=== PATIENT | female | born 1945 | race Caucasian/White ===

== ENCOUNTER 2016-08-13 09:21 | Inpatient (IN) ==
[2016-08-13] MEDS ORDERED: IOPAMIDOL 100 ML BOTTLE IV ONE (09:22)
--- NOTE | 2016-08-13 10:13 | Emergency Department Note ---
General Adult HPI - General Chief complaint: Cold/Flu Symptoms Stated complaint: Chills, sore throat, Chest congestion Time Seen by Provider: 08/13/16 09:53 Source: patient Mode of arrival: ambulatory Limitations: no limitations - History of Present Illness HPI Narrative: 70 year old female is complaining of sudden onset of chills, fever and cough since 08/10. She has had chills and sweats on and off during this time. What is concerning her most is the left anterior chest pain radiating into her left jaw and shoulder. It feels like pressure and squeezing. She is short of breath , has a cough, and is afraid her lung might be collapsed. She had this happen 30 years ago. Appetite is decreased. She is nauseated but is able to drink fluids. Aleve taken for the body aches which are better today. Last dose was last night. She is still diaphoretic and the chest pain continues. No hx of cardiac risks. Onset (ago): day(s) (3) Location: chest (left anterior) Radiation: neck Severity: moderate Quality: aching, constant Consistency: constant Improves with: none Worsens with: none Associated symptoms: Reports: diaphoresis, fever/chills, loss of appetite, nausea/vomiting (nausea), shortness of breath Treatments Prior to Arrival: none - Related Data Home Medications Medication Instructions Recorded Confirmed No Known Home Meds [No Known Home 08/13/16 08/13/16 Meds] Allergies Allergy/AdvReac Type Severity Reaction Status Date / Time Penicillin Allergy Mild Rash Uncoded 04/07/15 08:38 Review of Systems Constitutional: Reports: fever, chills ENT ED: Denies: throat pain, congestion Cardiovascular: Reports: chest pain, dyspnea on exertion. Denies: edema Respiratory: Reports: cough Gastrointestinal: Reports: nausea. Denies: diarrhea Musculoskeletal: Reports: myalgia (resolving) Integumentary: Denies: rash Neurological: Denies: headache Physical Exam - General Limitations: no limitations General appearance: alert, in no apparent distress - Head Head exam: normocephalic - Eye Eye exam: Present: normal appearance, PERRL, EOMI - ENT ENT exam: normal exam - Neck Neck exam: Present: normal inspection. Absent: tenderness, lymphadenopathy - Chest Chest inspection: Present: normal inspection, symmetric chest wall rise. Absent : tenderness - Respiratory Respiratory exam: Present: other (Moving air right lung kaufman, decreased on the left. O2 sat 93% on room air.) - Cardiovascular Cardiovascular exam: Present: tachycardia, normal heart sounds - Abdominal Exam Abdominal exam: Present: soft, distention (Patient feels she is bloated), normal bowel sounds. Absent: tenderness Abdominal tenderness: Present: mild (generalized) - Rectal Exam Rectal exam: Present: deferred - Extremities Exam Extremities exam: Present: normal inspection, normal capillary refill. Absent: pedal edema - Neurological Exam Neurological exam: Present: alert, oriented X3 - Psychiatric Psychiatric exam: Present: normal affect, normal mood - Skin Skin exam: Present: warm, intact, diaphoresis Course Vital Signs Temperature 98.7 F 08/13/16 09:22 Pulse Rate 115 H 08/13/16 09:22 Respiratory Rate 22 08/13/16 09:22 Blood Pressure 108/65 08/13/16 09:22 Pulse Oximetry (%) 95 08/13/16 09:22 Temperature 99.4 F H 08/13/16 12:24 Pulse Rate 102 H 08/13/16 12:18 Respiratory Rate 30 H 08/13/16 12:18 Blood Pressure 108/47 08/13/16 12:18 Pulse Oximetry (%) 93 08/13/16 12:18 Medical Decision Making - Lab Data Result diagrams: 08/13/16 10:27 08/13/16 10:27 Lab Results 08/13/16 08/13/16 08/13/16 Range/Units 10:27 10:27 10:27 WBC 17.1 H (4.5-11.0) K/mcL RBC 4.16 (4.00-5.20) M/mcL Hgb 13.0 (12.0-15.0) g/dL Hct 37.6 (36.0-48.0) % MCV 90.3 (80.0-100.0) fL MCH 31.2 (26.0-34.0) pg MCHC 34.5 (31.0-36.0) g/dL RDW 14.7 H (11.5-14.5) % Plt Count 152 (140-440) K/mcL MPV 10.1 (7.4-10.4) fL Gran % 91.2 H (38.0-78.0) % Lymph % (Auto) 4.4 L (15.5-49.0) % Lyman % (Auto) 4.3 (1.0-12.0) % Eos % (Auto) 0 (0.0-7.0) % Baso % (Auto) 0.1 (0.0-2.0) % Gran # 15.6 H (1.8-8.0) K/mcL Lymph # (Auto) 0.8 L (1.5-4.8) K/mcL Lyman # (Auto) 0.7 (0.1-0.9) K/mcL Eos # (Auto) 0 (0.0-0.7) K/mcL Baso # (Auto) 0 (0.0-0.3) K/mcL VBG Lactic Acid (0.5-2.2) mmol/L Sodium 131 L (133-145) mmol/L Potassium 3.4 (3.3-5.1) mmol/L Chloride 93 L (96-108) mmol/L Carbon Dioxide 22 (22-30) mmol/L Anion Gap 16.0 (8-16) BUN 23 (8-23) mg/dl Creatinine 0.8 (0.6-1.1) mg/dl GFR Calculation 76 Glucose 123 H (70-105) mg/dL Calcium 9.2 (8.6-10.4) mg/dl Total Bilirubin 0.9 (0.0-1.0) mg/dL AST 19 (0-37) U/l ALT 15 (0-40) U/l Alkaline Phosphatase 102 (39-117) U/L Total Creatine Kinase 58 (24-170) IU/L CK-MB (CK-2) 1.1 (0-2.9) ng/ml Myoglobin 55 (25-58) ng/ml Troponin T < 0.01 (0-0.03) ng/ml Total Protein 7.0 (5.9-8.4) gm/dL Albumin 3.5 (3.2-5.2) gm/dL Globulin 3.5 (2.2-3.7) gm/dL Albumin/Globulin Ratio 1.0 (1.0-2.3) Procalcitonin (<0.10) ng/mL Acetaminophen (10.0-30.0) mcg/ml 08/13/16 08/13/16 08/13/16 Range/Units 10:27 10:27 11:33 WBC (4.5-11.0) K/mcL RBC (4.00-5.20) M/mcL Hgb (12.0-15.0) g/dL Hct (36.0-48.0) % MCV (80.0-100.0) fL MCH (26.0-34.0) pg MCHC (31.0-36.0) g/dL RDW (11.5-14.5) % Plt Count (140-440) K/mcL MPV (7.4-10.4) fL Gran % (38.0-78.0) % Lymph % (Auto) (15.5-49.0) % Lyman % (Auto) (1.0-12.0) % Eos % (Auto) (0.0-7.0) % Baso % (Auto) (0.0-2.0) % Gran # (1.8-8.0) K/mcL Lymph # (Auto) (1.5-4.8) K/mcL Lyman # (Auto) (0.1-0.9) K/mcL Eos # (Auto) (0.0-0.7) K/mcL Baso # (Auto) (0.0-0.3) K/mcL VBG Lactic Acid 1.3 (0.5-2.2) mmol/L Sodium (133-145) mmol/L Potassium (3.3-5.1) mmol/L Chloride (96-108) mmol/L Carbon Dioxide (22-30) mmol/L Anion Gap (8-16) BUN (8-23) mg/dl Creatinine (0.6-1.1) mg/dl GFR Calculation Glucose (70-105) mg/dL Calcium (8.6-10.4) mg/dl Total Bilirubin (0.0-1.0) mg/dL AST (0-37) U/l ALT (0-40) U/l Alkaline Phosphatase (39-117) U/L Total Creatine Kinase (24-170) IU/L CK-MB (CK-2) (0-2.9) ng/ml Myoglobin (25-58) ng/ml Troponin T (0-0.03) ng/ml Total Protein (5.9-8.4) gm/dL Albumin (3.2-5.2) gm/dL Globulin (2.2-3.7) gm/dL Albumin/Globulin Ratio (1.0-2.3) Procalcitonin 4.97 (<0.10) ng/mL Acetaminophen < 5.0 L (10.0-30.0) mcg/ml Disposition Clinical Impression: Pneumonia Disposition: Xfer As Inpt ([facility]) Condition: Fair Referrals: Cl Bains MD [Primary Care Provider] -
[2016-08-13] MEDS ORDERED: ASPIRIN 81 MG TAB.CHEW CHEWED ONE (10:15)
[2016-08-13 11:12] LABS: Basophils # (Auto) 0 K/mcL (0.0-0.3); Basophils % (Auto) 0.1 % (0.0-2.0); Eosinophils # (Auto) 0 K/mcL (0.0-0.7); Eosinophils % (Auto) 0 % (0.0-7.0); Granulocytes % (Auto) 91.2 % (38.0-78.0); Lymphocytes # (Auto) 0.8 K/mcL (1.5-4.8); Lymphocytes % (Auto) 4.4 % (15.5-49.0); Mean Cell Volume 90.3 fL (80.0-100.0); Mean Corpuscular HGB Conc 34.5 g/dL (31.0-36.0); Mean Corpuscular Hemoglobin 31.2 pg (26.0-34.0); Monocytes # (Auto) 0.7 K/mcL (0.1-0.9); Monocytes % (Auto) 4.3 % (1.0-12.0); Platelet Count 152 K/mcL (140-440); RBC 4.16 M/mcL (4.00-5.20); Red Cell Distribution Width 14.7 % (11.5-14.5)
[2016-08-13] MEDS ORDERED: ACETAMINOPHEN 325 MG TABLET PO ONE (11:12)
[2016-08-13] MEDS ORDERED: 0.9 % SODIUM CHLORIDE 1,000 ML IV ONE ×2 (11:25→13:36)
[2016-08-13] MEDS ORDERED: LEVOFLOXACIN 500 MG/100 ML BAG IV SCH (11:30)
[2016-08-13] MEDS ORDERED: cefTRIAXone 1 GM in DEXTROSE 5% IN WATER 50 ML IV SCH (11:30)
[2016-08-13] MEDS ORDERED: IPRATROPIUM/ALBUTEROL 3 ML AMPUL.NEB NEB ONE (11:34)
[2016-08-13 11:38] LABS: Myoglobin 55 ng/ml (25-58)
[2016-08-13 11:39] LABS: Creatine Kinase MB 1.1 ng/ml (0-2.9)
--- NOTE | 2016-08-13 11:40 | XRay Report ---
CLINICAL INFORMATION: Chest pain FINDINGS: The heart is mildly enlarged. Mediastinum and pulmonary vasculature are unremarkable. An 8 cm mass versus masslike infiltrate is seen in the lateral left upper lobe. Minor bibasilar atelectasis noted. IMPRESSION: 8 cm mass versus masslike infiltrate versus loculated pleural effusion in the left upper lobe. Suggest two view upright chest x-ray as the next step in evaluation Interpreted and Authenticated by: Gregory Garza 08/13/16
[2016-08-13 11:43] LABS: ALT/SGPT 15 U/l (0-40); Albumin 3.5 gm/dL (3.2-5.2); Alkaline Phosphatase 102 U/L (39-117); Blood Urea Nitrogen 23 mg/dl (8-23); Creatine Kinase 58 IU/L (24-170)
--- NOTE | 2016-08-13 12:26 | Cat Scan Report ---
CLINICAL INFORMATION: Potential mass left upper lobe on plain film COMPARISON: Plain film from 08/13/2016 TECHNIQUE: 80 cc of Isovue-300 were injected intravenously, and 25 seconds later, 2.5 mm helical slices were obtained from the lung apices through the bases. Following reconstruction, 2.5 mm sagittal, coronal and axial reformations were processed and reviewed at lung, mediastinal and bone windows. 7 mm axial MIPS were also obtained FINDINGS: There is a large alveolar infiltrate throughout most of the left upper lobe with partial sparing of the anterior segment. It is likely a simple pneumonia. There is minimal underlying bronchitis appreciated. No effusion. Mediastinal windows show the heart to be normal in size configuration. Thoracic aorta and pulmonary arteries are unremarkable. A few mildly enlarged lymph nodes are seen in the left hilum, AP window and lower paratracheal region (benign reactive lymph nodes. Esophagus is grossly normal. Bones and soft tissues of the chest wall are normal. IMPRESSION: Large infiltrate, involving most of the left upper lobe, is likely a simple pneumonia. Interpreted and Authenticated by: Gregory Garza 08/13/16
--- NOTE | 2016-08-13 13:52 | Internal Med History&Physical ---
Medical - H&P: HPI Patient information: Note initiated : 08/13/16 at 1:49 pm Patient: Francine Way a 70 y/o F admitted on for Chills, sore throat, Chest congestion. History of present illness: Ms. Way is a 70 year old F This patient is a 70-year-old female who was in her normal state of health until about 4 days ago. On Monday, she said she developed the sudden onset of chills and diaphoresis, myalgias, and just generally felt very poorly. She thought she had some sort of viral infection, and put herself to bed. Since then she has developed cough productive of greenish phlegm. She has been experiencing pain in the left upper chest and into the shoulder for the last 2 days. Her breathing has been more labored for the last 2 days as well. She says she has had a very mild sore throat, and very poor appetite. She did not check her temperature. Otherwise, she denies headaches or dizziness, blurry vision, ear symptoms, dysphasia. She denies chest pain other than near the shoulder, palpitations, abdominal pain, nausea or vomiting, diarrhea or constipation, or dysuria. She has not noticed swollen lymph nodes. She presented to the emergency room, where she was found to have a temperature greater than 101, O2 saturations hovering around 92% on room air, systolic blood pressure in the 80s, markedly elevated white blood cell count and elevated pro-calcitonin level. Chest x-ray and then chest CT scan show dense left upper lobe pneumonia. Past medical history: History of pneumothorax 30 years ago ? Esophageal stricture-status post dilation. She no longer takes omeprazole. Dyslipidemia-vision is unsure about this. Medications: She takes some kind of hair vitamin. She takes another [id number] anti- inflammatory supplement, which sounds like it contains herbs. She takes fish oil 3 times a day. Allergies: Penicillin-many years ago. Social history: She denies use of tobacco or alcohol or drugs. She lives with her . 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 Of note, her has been sick with what sounds like a sinus infection and a little bit of a cough lately. She had 4 children, one is . The other 3 live out of town in [place], [place], etc. Between she and her they have raised about 10 children. Family history: Her mom with cervical cancer. Her grandmother lived to be 96. Her father of a heart attack followed by a stroke in his 80s. She has one brother who is alive and well. Medical - H&P: Meds Home Medications Medication Instructions Recorded Confirmed Type No Known Home Meds [No Known Home 08/13/16 08/13/16 History Meds] Allergies Allergy/AdvReac Type Severity Reaction Status Date / Time Penicillin Allergy Mild Rash Uncoded 04/07/15 08:38 Medical - H&P: Exam - Constitutional Vitals: Temp Pulse Resp BP Pulse Ox 99.4 F H 86 24 H 102/77 96 08/13/16 12:24 08/13/16 13:35 08/13/16 13:35 08/13/16 13:35 08/13/16 13:35 Initial temperature 101.7, heart rate 106, respiratory rate 25, blood pressure 117/75, O2 saturation 92% on room air. Blood pressure prior to transfer to the floor, was 89/50 per She is lying in bed, with no severe distress at the moment. She does have a very congested sounding cough. Head: Cephalic atraumatic. Eyes: PERRLA, EOMI, anicteric. Ears: TMs and canals are clear. Pharynx: Mucosa is a bit dry. Posterior pharynx is not well seen. There is crowding due to her tongue. Teeth are in good repair. Neck: Is supple, without lymphadenopathy, JVD, thyromegaly, bruits. Cardiac exam shows regular rate and rhythm, with normal S1 and S2, although heart sounds are fairly distant and overshadowed a bit by her lung sounds. Lungs: She has quite a bit of crackles and wheezing noted in the anterior left chest. There is some softer crackles noted in the left upper posterior lung kaufman. Remainder of the lungs are clear. Abdomen: Is soft and nontender, with no masses or tenderness. Bowel sounds are active. Extremities: Show no cyanosis, clubbing, edema. Neurologic exam is grossly nonfocal. Skin exam: Does not show any rashes or other worrisome lesions. Medical - H&P: Reslt - Labs CBC & Chem 7: 08/13/16 10:27 08/13/16 10:27 Labs: Short CBC 08/13/16 Range/Units 10:27 WBC 17.1 H (4.5-11.0) K/mcL Hgb 13.0 (12.0-15.0) g/dL Hct 37.6 (36.0-48.0) % Plt Count 152 (140-440) K/mcL BMP 08/13/16 10:27 Sodium 131 L Potassium 3.4 Chloride 93 L Carbon Dioxide 22 BUN 23 Creatinine 0.8 Glucose 123 H Calcium 9.2 Cardiac Enzymes 08/13/16 08/13/16 Range/Units 10:27 10:27 Total Creatine Kinase 58 (24-170) IU/L CK-MB (CK-2) 1.1 (0-2.9) ng/ml Troponin T < 0.01 (0-0.03) ng/ml Liver Function 08/13/16 Range/Units 10:27 Total Bilirubin 0.9 (0.0-1.0) mg/dL AST 19 (0-37) U/l ALT 15 (0-40) U/l Alkaline Phosphatase 102 (39-117) U/L Albumin 3.5 (3.2-5.2) gm/dL August 13: CBC differential shows 15,000 granulocytes, 800 lymphocytes. RDW is elevated at 14.7. Lactic acid is normal at 1.3 Pro-calcitonin is elevated at 4.97, consistent with possible sepsis. CT scan of the chest: Shows a large infiltrate, involving most of the left upper lobe, likely a simple pneumonia. Minimal underlying bronchitis. Mildly enlarged lymph nodes in the left hilum, likely benign reactive. Medical - H&P: A/P (1) Pneumonia involving left lung Current visit: Yes Status: Acute (2) CAP (community acquired pneumonia) Current visit: Yes Status: Acute (3) SIRS (systemic inflammatory response syndrome) Current visit: Yes Status: Acute (4) Hyperlipidemia Current visit: No Status: Chronic (5) History of esophageal stricture Current visit: No Status: Chronic - Narrative A/P Narrative: #1. Infectious disease. SIRS syndrome this patient presents with signs and symptoms of left upper lobe pneumonia, community-acquired. She presents with fever, borderline hypoxia, hypotension, elevated pro-calcitonin, consistent with possible early sepsis. -Admit to telemetry for close monitoring. -Treat with Rocephin for community-acquired pneumonia, plus clindamycin for possible aspiration. -Pulmonary toilet, oxygen, bronchodilators, incentive spirometry. -Aggressive IV fluid hydration. -Monitor labs. -Blood and sputum cultures are pending. -If blood pressure does not respond to fluids, add levophed for support. 2. CODE STATUS: Full code. She indicates she does not have a written living well, but thinks she would like her daughter to have her power of business attorney. She would not want long-term life support. 3. DVT prophylaxis: Subcu heparin. 4. GI: Reported history of esophageal stricture. -I will start her on a proton pump inhibitor for prophylaxis. 5. History of hyperlipidemia. -Patient denies history of this 6. Renal/endocrine. Patient presents with hyponatremia. This is likely related to her lung process. Continue to monitor. This visit took approximately 60 minutes, to review her case with the ER MD, review her records and test results, interview and examine her, explained plan of care to she and her , and write orders.
[2016-08-13] MEDS ORDERED: ALBUTEROL SULFATE 2.5 MG/3 ML NEBULIZER NEB PRN (14:22)
[2016-08-13] MEDS ORDERED: ACETAMINOPHEN 325 MG TABLET PO PRN (14:22)
[2016-08-13] MEDS ORDERED: ONDANSETRON 4 MG/2 ML VIAL IV PRN (14:22)
[2016-08-13] MEDS ORDERED: NALOXONE HCL 0.4 MG/ML VIAL IV PRN (14:22)
[2016-08-13] MEDS ORDERED: DOCUSATE SODIUM 100 MG CAPSULE PO PRN (14:22)
[2016-08-13] MEDS ORDERED: MAGNESIUM HYDROXIDE 30 ML ORAL.SUSP PO PRN (14:22)
[2016-08-13] MEDS: CLINDAMYCIN 300 MG in DEXTROSE 5% IN WATER 50 ML IV SCH ×3 (15:00→23:32)
[2016-08-13] MEDS: POTASSIUM CHLORIDE 20 MEQ in 0.45 % SODIUM CHLORIDE 1,000 ML IV SCH ×2 (15:00→22:23)
[2016-08-13] MEDS: ALBUTEROL SULFATE 2.5 MG/3 ML NEBULIZER NEB SCH (19:31)
[2016-08-13] MEDS: HYDROcodone/APAP 5/325MG TABLET PO PRN ×2 (20:44→23:27)
[2016-08-14] MEDS: ALBUTEROL SULFATE 2.5 MG/3 ML NEBULIZER NEB SCH ×4 (01:52→19:44)
[2016-08-14] MEDS: POTASSIUM CHLORIDE 20 MEQ in 0.45 % SODIUM CHLORIDE 1,000 ML IV SCH ×2 (05:03→09:39)
[2016-08-14] MEDS: CLINDAMYCIN 300 MG in DEXTROSE 5% IN WATER 50 ML IV SCH ×3 (05:31→17:52)
[2016-08-14 05:36] LABS: Basophils # (Auto) 0 K/mcL (0.0-0.3); Basophils % (Auto) 0 % (0.0-2.0); Eosinophils # (Auto) 0.1 K/mcL (0.0-0.7); Eosinophils % (Auto) 0.5 % (0.0-7.0); Granulocytes % (Auto) 83.6 % (38.0-78.0); Lymphocytes % (Auto) 8.7 % (15.5-49.0); Mean Corpuscular HGB Conc 33.5 g/dL (31.0-36.0); Mean Corpuscular Hemoglobin 30.8 pg (26.0-34.0); Monocytes # (Auto) 0.8 K/mcL (0.1-0.9); Monocytes % (Auto) 7.2 % (1.0-12.0); Platelet Count 144 K/mcL (140-440); RBC 3.57 M/mcL (4.00-5.20); Red Cell Distribution Width 14.9 % (11.5-14.5)
[2016-08-14 05:52] LABS: ALT/SGPT 15 U/l (0-40); Albumin 2.7 gm/dL (3.2-5.2); Albumin/Globulin Ratio 0.9 (1.0-2.3); Alkaline Phosphatase 97 U/L (39-117); Bilirubin,Direct < 0.2 mg/dL (0.0-0.3); Blood Urea Nitrogen 16 mg/dl (8-23); Gamma Glutamyl Transpeptidase 24 U/L (5-36); Magnesium 2.2 mg/dL (1.6-2.5); Uric Acid 4.3 mg/dL (2.5-8.0)
[2016-08-14] MEDS: PANTOPRAZOLE 40 MG TABLET PO SCH (07:11)
--- NOTE | 2016-08-14 08:23 | XRay Report ---
CLINICAL INFORMATION: Follow pneumonia COMPARISON: 08/13/2016 FINDINGS: The heart is mildly enlarged, but unchanged. Mediastinum and pulmonary vessels are normal. Densely consolidated infiltrate in the left upper lobe is slightly larger. Small vague infiltrate is developing in the left lower lobe IMPRESSION: Moderate sized of the consolidated left upper lobe infiltrate likely pneumonia is slightly increased. Small infiltrate involving the left lower lobe Interpreted and Authenticated by: Gregory Garza 08/14/16
[2016-08-14] MEDS ORDERED: PNEUMOCOCCAL 23-VAL P-SAC VAC 0.5 ML VIAL IM ONE (09:00)
[2016-08-14] MEDS: ENOXAPARIN 40 MG/0.4 ML SYRINGE SQ SCH (09:32)
[2016-08-14] MEDS: cefTRIAXone 1 GM in DEXTROSE 5% IN WATER 50 ML IV SCH (09:38)
--- NOTE | 2016-08-14 11:05 | Internal Med Progress Note ---
Medical - PN: Subj Patient information: Note initiated : 08/14/16 at 11:04 am Patient: Francine Way a 70 y/o F admitted on 08/13/16 for Chills, sore throat, Chest congestion. Interval history: August 13, 2016: History of present illness: Ms. Way is a 70 year old F This patient is a 70-year-old female who was in her normal state of health until about 4 days ago. On Monday, she said she developed the sudden onset of chills and diaphoresis, myalgias, and just generally felt very poorly. She thought she had some sort of viral infection, and put herself to bed. Since then she has developed cough productive of greenish phlegm. She has been experiencing pain in the left upper chest and into the shoulder for the last 2 days. Her breathing has been more labored for the last 2 days as well. She says she has had a very mild sore throat, and very poor appetite. She did not check her temperature. Otherwise, she denies headaches or dizziness, blurry vision, ear symptoms, dysphasia. She denies chest pain other than near the shoulder, palpitations, abdominal pain, nausea or vomiting, diarrhea or constipation, or dysuria. She has not noticed swollen lymph nodes. She presented to the emergency room, where she was found to have a temperature greater than 101, O2 saturations hovering around 92% on room air, systolic blood pressure in the 80s, markedly elevated white blood cell count and elevated pro-calcitonin level. Chest x-ray and then chest CT scan show dense left upper lobe pneumonia. August 14: Today, the patient notes she is feeling quite a bit better. She continues to have a significant cough, productive of blood-streaked greenish phlegm. She continues to have significant pain in her left upper chest and shoulder area, but thinks her shortness of breath is improved. Her fever has been coming down overnight. She did get up to walk today, but was a little unsteady on her feet. Her appetite seems a little bit improved this morning. Otherwise she has been sweaty overnight, but did not actually feel feverish. She denies headaches or dizziness, sore throat, significant shortness of breath. She denies abdominal pain, nausea or vomiting, diarrhea, dysuria. - Constitutional Vitals: Vital Signs Temp Pulse Resp BP Pulse Ox 97.4 F 86 16 103/74 98 08/14/16 07:00 08/14/16 07:15 08/14/16 07:15 08/14/16 07:00 08/14/16 07:15 Period Temp Pulse Resp BP Sys/Britt Pulse Ox Last 24 Hr 97.4 F-98.2 F 60-87 16-20 94-111/59-74 93-98 Intake and Output 08/13/16 08/14/16 08/14/16 21:59 05:59 13:59 Intake Total 2414 / 2414 2142 / 2142 972 / 972 Output Total 700 / 700 1000 / 1000 20 / 20 Balance 1714 / 1714 1142 / 1142 952 / 952 Weight 214 lb Intake & Output: Intake & Output 08/13/16 08/14/16 08/14/16 21:59 05:59 13:59 Intake Total 2414 / 2414 2142 / 2142 972 / 972 Output Total 700 / 700 1000 / 1000 20 / 20 Balance 1714 / 1714 1142 / 1142 952 / 952 Weight 214 lb Intake: IV 2114 / 2114 1062 / 1062 792 / 792 Cleocin 300 mg In 104 / 104 52 / 52 52 / 52 Dextrose 5% in Water 50 ml @ 100 mls/hr IV Q6H [facility] Rx#:[id number] Potassium Chloride 20 Meq 1010 / 1010 1010 / 1010 In Sodium Chloride 0.45% 1,000 ml @ 150 mls/hr IV .[id number] [facility] Rx#: [id number] Oral 300 / 300 1080 / 1080 180 / 180 Output: Void Amount 700 / 700 1000 / 1000 20 / 20 Other: # Voids 1 1 Temperature is 98.3. Respiratory rate 24. Blood pressure 103/88. O2 saturation is 94% on room air. On exam, she still appears rather fatigued. However she is lying flat and in no distress. Neck is supple without obvious lymphadenopathy. She does have a heating pad over her left shoulder area. Cardiac exam: Shows regular rate and rhythm. Lungs: She has rather marked wheezes and rhonchi noted in the left upper chest both anteriorly and posteriorly. She does have a few crackles scattered throughout the left-sided lung kaufman. Breath sounds are mostly clear, and somewhat decreased in the remainder of the lung kaufman. Abdomen is soft and nontender with no obvious masses. Extremities show no edema. Neurologic exam is grossly nonfocal. Medical - PN: Obj Da - Labs CBC & Chem 7: 08/14/16 03:42 08/14/16 03:42 Labs: Abnormal Lab Results 08/14/16 08/14/16 03:42 03:42 WBC 11.6 H RBC 3.57 L Hgb 11.0 L Hct 32.9 L RDW 14.9 H Gran % 83.6 H Lymph % (Auto) 8.7 L Gran # 9.7 H Lymph # (Auto) 1.0 L Glucose 107 H Phosphorus 2.4 L Total Protein 5.7 L Albumin 2.7 L Albumin/Globulin Ratio 0.9 L August 14: Blood cultures are negative so far. Sputum culture is still pending. Chest x-ray: Left upper lobe infiltrate is slightly increased. There is also a small infiltrate involving the left lower lobe. August 13: CBC differential shows 15,000 granulocytes, 800 lymphocytes. RDW is elevated at 14.7. Lactic acid is normal at 1.3 Pro-calcitonin is elevated at 4.97, consistent with possible sepsis. CT scan of the chest: Shows a large infiltrate, involving most of the left upper lobe, likely a simple pneumonia. Minimal underlying bronchitis. Mildly enlarged lymph nodes in the left hilum, likely benign reactive. Meds: Medications Acetaminophen (Tylenol) 650 mg PO Q6HP PRN PRN Reason: PAIN/FEVER > 101 Hydrocodone Bitart/Acetaminophen ([place] 5/325mg) 1 tab PO Q4HP PRN PRN Reason: Pain Last Admin: 08/13/16 23:27 Dose: 1 tab Albuterol Sulfate (Ventolin) 2.5 mg NEB Q6HRT [facility] Last Admin: 08/14/16 07:12 Dose: 2.5 mg Albuterol Sulfate (Ventolin) 2.5 mg NEB Q2HP PRN PRN Reason: Shortness Of Breath Docusate Sodium (Colace) 100 mg PO BID PRN PRN Reason: Constipation Enoxaparin Sodium (Lovenox) 40 mg SQ DAILY [facility] Last Admin: 08/14/16 09:32 Dose: 40 mg Ceftriaxone Sodium 1 gm/ (Dextrose) 50 mls @ 100 mls/hr IV DAILY [facility] Last Admin: 08/14/16 09:38 Dose: 100 mls/hr Clindamycin Phosphate 300 mg/ (Dextrose) 52 mls @ 100 mls/hr IV Q6H [facility] Last Infusion: 08/14/16 06:32 Dose: Infused Potassium Chloride 20 meq/ (Sodium Chloride) 1,010 mls @ 80 mls/hr IV .[id number] [facility] Last Admin: 08/14/16 09:39 Dose: 80 mls/hr Magnesium Hydroxide (Milk Of Magnesia) 30 ml PO DAILYP PRN PRN Reason: Constipation Naloxone HCl (Narcan) 0.1 mg IV Q2MIN PRN PRN Reason: Opiate Reversal Ondansetron HCl (Zofran) 4 mg IV Q4HP PRN PRN Reason: Nausea And Vomiting Pantoprazole Sodium (Protonix) 40 mg PO QAMAC [facility] Last Admin: 08/14/16 07:11 Dose: 40 mg Medical - PN: A/P - Time Spent With Patient Total time spent is greater than 50% in coordination of care (as documented) at patient's floor/unit and/or counseling patient: (1) Pneumonia involving left lung Status: Acute Current Visit: Yes (2) CAP (community acquired pneumonia) Status: Acute Current Visit: Yes (3) SIRS (systemic inflammatory response syndrome) Status: Acute Current Visit: Yes (4) Hyperlipidemia Status: Chronic Current Visit: No (5) History of esophageal stricture Status: Chronic Current Visit: No - Narrative A/P Narrative: #1. Infectious disease. SIRS syndrome this patient presents with signs and symptoms of left upper lobe pneumonia, community-acquired. She presents with fever, borderline hypoxia, hypotension, elevated pro-calcitonin, consistent with possible early sepsis. -Sputum has been somewhat bloody. I am a little bit concerned about a process other than just community-acquired pneumonia. We will continue with IV antibiotics for now. Sputum culture is pending. Leukocytosis has improved. Consider sputum sent out for fungal and TB screens. I advised the patient that with a pneumonia the significant, she should definitely have follow-up imaging in 2-3 weeks to be sure of resolution. -Repeat chest x-ray in the morning. Continue: -Admitteded to telemetry for close monitoring. -Treat with Rocephin for community-acquired pneumonia, plus clindamycin for possible aspiration. -Pulmonary toilet, oxygen, bronchodilators, incentive spirometry. -Aggressive IV fluid hydration. -Monitor labs. -Blood and sputum cultures are pending. 2. CODE STATUS: Full code. She indicates she does not have a written living well, but thinks she would like her daughter to have her power of trust and estates attorney. She would not want long-term life support. 3. DVT prophylaxis: Subcu heparin. 4. GI: Reported history of esophageal stricture. - proton pump inhibitor for prophylaxis. 5. History of hyperlipidemia. -Patient denies history of this. 6. Renal/endocrine. Patient presents with hyponatremia. This is likely related to her lung process. Resolved. This visit took approximately 30 minutes today, to review patient's test results , interview and examine her, review plan of care with the patient and her family , and nursing staff, and write orders. Medical - PN: Qual - VTE Deep Vein Thrombosis/Pulmonary Embolism Present on Admission: No
[2016-08-14] MEDS ORDERED: cefTRIAXone 1 GM in DEXTROSE 5% IN WATER 50 ML IV SCH (11:30)
[2016-08-15] MEDS: POTASSIUM CHLORIDE 20 MEQ in 0.45 % SODIUM CHLORIDE 1,000 ML IV SCH ×2 (00:06→11:47)
[2016-08-15] MEDS: CLINDAMYCIN 300 MG in DEXTROSE 5% IN WATER 50 ML IV SCH ×3 (00:06→12:05)
[2016-08-15] MEDS: ALBUTEROL SULFATE 2.5 MG/3 ML NEBULIZER NEB SCH ×2 (00:08→07:42)
[2016-08-15 05:43] LABS: Basophils # (Auto) 0 K/mcL (0.0-0.3); Basophils % (Auto) 0.4 % (0.0-2.0); Eosinophils # (Auto) 0.1 K/mcL (0.0-0.7); Eosinophils % (Auto) 1.9 % (0.0-7.0); Granulocytes % (Auto) 69.9 % (38.0-78.0); Lymphocytes # (Auto) 1.3 K/mcL (1.5-4.8); Lymphocytes % (Auto) 17.9 % (15.5-49.0); Mean Cell Volume 91.2 fL (80.0-100.0); Mean Corpuscular HGB Conc 34.1 g/dL (31.0-36.0); Mean Corpuscular Hemoglobin 31.1 pg (26.0-34.0); Monocytes # (Auto) 0.7 K/mcL (0.1-0.9); Monocytes % (Auto) 9.9 % (1.0-12.0); Platelet Count 179 K/mcL (140-440); RBC 3.52 M/mcL (4.00-5.20); Red Cell Distribution Width 14.8 % (11.5-14.5)
[2016-08-15 06:03] LABS: ALT/SGPT 16 U/l (0-40); Albumin 2.9 gm/dL (3.2-5.2); Alkaline Phosphatase 90 U/L (39-117); Bilirubin,Direct < 0.2 mg/dL (0.0-0.3); Blood Urea Nitrogen 11 mg/dl (8-23); Gamma Glutamyl Transpeptidase 26 U/L (5-36); Magnesium 2.1 mg/dL (1.6-2.5)
--- NOTE | 2016-08-15 07:18 | XRay Report ---
CLINICAL INFORMATION: Pneumonia TECHNIQUE: Upright PA and lateral chest x-ray COMPARISON: Previous chest x-rays dated 08/14/2016 and 08/13/2016. Previous chest CT scan dated 08/13/2016 FINDINGS: Left upper lobe consolidation is improved but not resolved. Continued follow-up recommended. Right lung remains negative. Heart size and vascularity are negative. No pulmonary edema or pulmonary congestion. No significant pleural effusion. IMPRESSION: 1. Improved left upper lobe pneumonia 2. Continued follow-up necessary Interpreted and Authenticated by: Gregory Escamilla 08/15/16
[2016-08-15] MEDS: PANTOPRAZOLE 40 MG TABLET PO SCH (07:27)
[2016-08-15] MEDS: ENOXAPARIN 40 MG/0.4 ML SYRINGE SQ SCH (09:18)
[2016-08-15] MEDS: cefTRIAXone 1 GM in DEXTROSE 5% IN WATER 50 ML IV SCH (09:53)
--- NOTE | 2016-08-15 11:48 | Discharge Summary ---
Medical - DS: Prov Patient information: Note initiated : 08/15/16 at 11:46 am Service Date, if different from initiated Date: [] Patient: Francine Way 70 y/o F admitted on 08/13/16 for Chills, Sore Throat, Chest Congestion/Pneumonia. Chief Complaint: [] Date of admission: 08/13/16 14:05 Discharge date: 08/15/16 Primary care physician: Cl Bains Admitting clinician: Nancy Hernandez Discharging clinician: Tadeo Alexander Medical - DS: Meds - Discharge Medications Prescriptions: Levofloxacin [Levaquin] 750 mg PO DAILY #7 tablet Active and Home Medications: Home Medications No Known Home Meds [No Known Home Meds] 08/13/16 [History Confirmed 08/13/16 Last Taken Unknown] Medical - DS: Hosp Hospital course: Mr. Way is a 70 year old Female who presented to the ER with complaints of fever, chills and cough. CXR suggesive of mass vs pna, CT chest showed left upper lobe pna, patient was admitted to the hospital for further management. Community Acquired Pneumonia/ Sepsis: Patient was treated with IV fluids and IV antibiotics, rocephin and clindamycin. Patient has responded to treatment very well, she is back to room air at this time and is able to ambulate. her wbc count is back to normal. her blood culture and sputum culture is negative. She will complete the course of antibiotics as outpatient. She is still weak from the infection and gets tired after some activity, advised rest, for now. She will be seen by her PCP and then decided if she is fit to resume work. Left shoulder, neck pain, thought to be due to pleuritic pain, related to pna in the upper left lobe. Treated with prn hydrocodone. She will continue same for short duration. The rest of the stay in the hospital was uneventful. She will be discharged home with her , and advsied to follow up with PCP in 7 days She will need a repeat x ray 3-4 weeks from now to document resolution of the PNA, her pcp can order same for follow up. Discharge diagnosis: Pneumonia - Time Spent with Patient Total time spent providing and/or coordinating discharge services: Less than 30 minutes Medical - DS: Exam - Constitutional Vitals: Vital Signs Temp Pulse Pulse Resp BP Pulse Ox 08/15/16 08:28 97 08/15/16 08:24 60 16 08/15/16 07:47 98.1 F 66 18 136/79 08/15/16 04:00 97.2 F 63 16 117/75 95 08/15/16 00:11 97.6 F 66 20 94 08/14/16 20:00 98.7 F 82 18 138/78 95 08/14/16 19:44 86 24 H 08/14/16 15:17 98.3 F 24 H 113/68 94 08/14/16 13:37 86 22 08/14/16 12:35 98.3 F 24 H 103/88 94 Intake and Output 08/14/16 08/15/16 08/15/16 21:59 05:59 13:59 Intake Total 352 / 352 1062 / 1062 650 / 650 Output Total 800 / 800 300 / 300 750 / 750 Balance -448 / -448 762 / 762 -100 / -100 Intake: IV 1062 / 1062 50 / 50 Cleocin 300 mg In 52 / 52 Dextrose 5% in Water 50 ml @ 100 mls/hr IV Q6H [facility] Rx#:[id number] Potassium Chloride 20 Meq 1010 / 1010 In Sodium Chloride 0.45% 1,000 ml @ 80 mls/hr IV .[id number] [facility] Rx#: [id number] Rocephin 1 gm In Dextrose 50 / 50 5% in Water 50 ml @ 100 mls/hr IV DAILY [facility] Rx#: [id number] Oral 300 / 300 600 / 600 Output: Void Amount 800 / 800 300 / 300 750 / 750 Other: Meal Breakfast Percent of Meal Consumed 100% Feeding Ability Independent # Voids 1 1 # Bowel Movements 1 Weight 216 lb 1.6 oz Additional comments: Constitutional; Afebrile, cooperative, alert, not in distress. Eyes- No icterus, , No periorbital swelling Ears- Ext ear normal, hearing normal to conversation. Neck- Midline trachea, supple Respiratory system: Air Entry equal on both sides, No crackles or wheezing, no rhonchi. CVS- Rate rhythm regular, S1,S2 heard, no gallop, no rub. Abdomen- Soft nontender abdomen, no organomegaly, no tenderness, no guarding or rigidity, [employer]- AOOx3, moving all extremities, no gross focal deficit noted. Medical - DS: Data Labs on day of discharge: Labs from last 24 hours 08/15/16 08/15/16 03:38 03:38 WBC 7.2 RBC 3.52 L Hgb 10.9 L Hct 32.1 L MCV 91.2 MCH 31.1 MCHC 34.1 RDW 14.8 H Plt Count 179 MPV 9.9 Gran % 69.9 Lymph % (Auto) 17.9 [place] % (Auto) 9.9 Eos % (Auto) 1.9 Baso % (Auto) 0.4 Gran # 5.0 Lymph # (Auto) 1.3 L [place] # (Auto) 0.7 Eos # (Auto) 0.1 Baso # (Auto) 0 Sodium 142 Potassium 3.9 Chloride 108 Carbon Dioxide 23 Anion Gap 11.0 BUN 11 Creatinine 0.5 L GFR Calculation 99 Glucose 102 Uric Acid 4.0 Calcium 8.7 Phosphorus 2.7 Magnesium 2.1 Total Bilirubin 0.2 Direct Bilirubin < 0.2 GGT 26 AST 14 ALT 16 Alkaline Phosphatase 90 Lactate Dehydrogenase 207 Total Protein 5.8 L Albumin 2.9 L Globulin 2.9 Albumin/Globulin Ratio 1.0 Triglycerides 139 Medical - DS: A/P - Patient/Caregiver Discharge Instructions Activity: as per physical therapy, increase activity as tolerated Diet: Regular Diet Additional Instructions: Please follow up with PCP in 7 days Take antibiotics for another [address] heavy machinery while on pain meds. Go to ER if worsening symptoms, or any other new concerning symptom. - Follow up Plan Follow up with: Cl Bains MD [Primary Care Provider] - 08/23/16 4:30 pm (Check in at 4:15 PM) Disposition: Home, Self-Care Prognosis: Fair Rehab Potential: Fair I certify that the patient requires SNF services: No Overall status at discharge: patient is progressing back to baseline Medical - DS: Qual - VTE Deep Vein Thrombosis/Pulmonary Embolism Present on Admission: No
[2016-08-15] MEDS ORDERED: PNEUMOCOCCAL 23-VAL P-SAC VAC 0.5 ML VIAL IM ONE (13:45)
== END 2016-08-15 13:55 | disposition home or self-care (01) | DRG 871 ==
LOC: ED-MC 09:21 → ICU 14:00
PROVIDERS: ADMIT Internal Medicine; ATTEND Internal Medicine

== ENCOUNTER 2017-02-15 07:02 | Inpatient (IN) ==
[2017-02-14 14:48] LABS: Appearance,Urine HAZY; Bacteria,Urine FEW /hpf (0); Bilirubin,Urine NEG (NEG); Color,Urine STRAW; Glucose,Urine (UA) NEGATIVE (NEG); Leukocyte Esterase,Urine NEG /uL (NEG); Mucus,Urine FEW /hpf (0); Nitrate,Urine NEG (NEG); Protein,Urine NEG (NEG); Specific Gravity,Urine 1.006 (1.000-1.035); Urine Blood 0.2 mg/dL (<0.03); Urine RBC 2 /hpf (0-1); Urine Squamous Epithelial Cell 2 /hpf (0-4); Urine WBC 2 /hpf (0-4); Urobilinogen,Urine NEG (NEG)
[2017-02-14 15:16] LABS: Basophils # (Auto) 0 K/mcL (0.0-0.3); Basophils % (Auto) 0.4 % (0.0-2.0); Eosinophils # (Auto) 0.1 K/mcL (0.0-0.7); Eosinophils % (Auto) 1.6 % (0.0-7.0); Granulocytes % (Auto) 64.3 % (38.0-78.0); Lymphocytes # (Auto) 1.6 K/mcL (1.5-4.8); Lymphocytes % (Auto) 26.6 % (15.5-49.0); Mean Corpuscular HGB Conc 33.8 g/dL (31.0-36.0); Mean Corpuscular Hemoglobin 30.8 pg (26.0-34.0); Monocytes # (Auto) 0.4 K/mcL (0.1-0.9); Monocytes % (Auto) 7.1 % (1.0-12.0); Platelet Count 208 K/mcL (140-440); RBC 4.46 M/mcL (4.00-5.20); Red Cell Distribution Width 14.9 % (11.5-14.5)
[2017-02-14 15:27] LABS: Blood Urea Nitrogen 16 mg/dl (8-23)
[~2017-02-15 07:02] MED LIST: CELECOXIB 200 MG CAPSULE PO SCH; KETOROLAC 30 MG, ROPIVACAINE HCL/PF 49.5 ML, EPINEPHrine 0.5 MG, 0.9 % SODIUM CHLORIDE ... IJ SCH; PREGABALIN 75 MG CAPSULE PO SCH; ceFAZolin 1 GM VIAL IV SCH; oxyCODONE 10 MG TAB.ER.12H PO SCH
[2017-02-15 09:06] LABS: Appearance,Urine CLEAR; Bacteria,Urine 0 /hpf (0); Bilirubin,Urine NEG (NEG); Color,Urine YELLOW; Glucose,Urine (UA) NEGATIVE (NEG); Leukocyte Esterase,Urine NEG /uL (NEG); Mucus,Urine FEW /hpf (0); Nitrate,Urine NEG (NEG); Protein,Urine NEG (NEG); Specific Gravity,Urine 1.019 (1.000-1.035); Urine Blood 0.2 mg/dL (<0.03); Urine RBC 11 /hpf (0-1); Urine Squamous Epithelial Cell 1 /hpf (0-4); Urine WBC 1 /hpf (0-4); Urobilinogen,Urine NEG (NEG)
[2017-02-15] MEDS ORDERED: PROMETHAZINE 25 MG/ML VIAL IV PRN (10:56)
[2017-02-15] MEDS ORDERED: fentaNYL 100 MCG/2 ML VIAL IV PRN (10:56)
[2017-02-15] MEDS ORDERED: LACTATED RINGERS 250 ML IV PRN (10:56)
[2017-02-15] MEDS ORDERED: MEPERIDINE 25 MG/ML SYRINGE IV PRN (10:56)
[2017-02-15] MEDS ORDERED: ONDANSETRON 4 MG/2 ML VIAL IV PRN ×2 (10:56→11:22)
[2017-02-15] MEDS ORDERED: FLUMAZENIL 0.1 MG/ML ML IV PRN (10:56)
[2017-02-15] MEDS ORDERED: ACETAMINOPHEN 1,000 MG/100 ML BOTTLE IV ONE (10:56)
[2017-02-15] MEDS ORDERED: NALOXONE HCL 0.4 MG/ML VIAL IV PRN (10:56)
[2017-02-15] MEDS ORDERED: METHOCARBAMOL 1,000 MG/10 ML VIAL IV PRN (10:56)
[2017-02-15] MEDS ORDERED: IPRATROPIUM/ALBUTEROL 3 ML AMPUL.NEB NEB PRN (10:56)
[2017-02-15] MEDS ORDERED: LACTATED RINGERS 1,000 ML IV SCH (11:00)
[2017-02-15] MEDS ORDERED: BENZOCAINE/MENTHOL 1 LOZENGE PO PRN (11:22)
[2017-02-15] MEDS ORDERED: HYDROcodone/APAP 10/325MG TABLET PO PRN (11:22)
[2017-02-15] MEDS ORDERED: FLEETS ADULT ENEMA PR PRN (11:22)
[2017-02-15] MEDS ORDERED: DEXTROSE 31 GM ORAL.SUSP PO PRN (11:22)
[2017-02-15] MEDS ORDERED: DEXTROSE 50% 50 ML VIAL IV PRN (11:22)
[2017-02-15] MEDS ORDERED: POLYETHYLENE GLYCOL 3350 17 GM PACKET PO PRN (11:22)
[2017-02-15] MEDS ORDERED: BISACODYL 10 MG SUPP.RECT PR PRN (11:22)
[2017-02-15] MEDS ORDERED: TRANEXAMIC ACID 1,000 MG/10 ML VIAL IV ONE ×2 (11:22→15:44)
[2017-02-15] MEDS ORDERED: MAGNESIUM HYDROXIDE 30 ML ORAL.SUSP PO PRN (11:22)
--- NOTE | 2017-02-15 11:22 | Brief Operative Note ---
Date of procedure: 02/15/17 Pre-op diagnosis: R knee severe DJD Post-op diagnosis: same Procedure: R TKA robotic assisted Grafts/Implants: Yes ([place] CR 2 femur, 2 tibia, 11 insert, 31 patella) Anesthesia: spinal, GLMA Findings: severe arthritis Complications: none Surgeon: Gaurav Hawkins Manager Process: Jamal Sykes Estimated blood loss (cc): 30 Specimens Removed/Pathology: none sent Condition: stable Disposition: PACU
[2017-02-15] MEDS ORDERED: INSULIN LISPRO 1 UNIT/0.01 ML UNIT SQ SCH (11:30)
--- NOTE | 2017-02-15 12:24 | XRay Report ---
CLINICAL INFORMATION: Post-op total knee. COMPARISON: None. FINDINGS: Total knee prostheses is anatomically aligned. Is no osseous abnormality. Periarticular gas and soft tissue swelling seen as expected. IMPRESSION: Negative Interpreted and Authenticated by: Gregory Garza 02/15/17
[2017-02-15] MEDS: HYDROmorphone 2 MG/ML SYRINGE IV PRN ×2 (13:57→16:23)
[2017-02-15] MEDS: KETOROLAC 30 MG/ML VIAL IV SCH ×3 (13:57→23:48)
[2017-02-15] MEDS: 0.9 % SODIUM CHLORIDE 10 ML SYRINGE IV SCH ×2 (14:06→23:47)
[2017-02-15] MEDS: 0.9 % SODIUM CHLORIDE 1,000 ML IV SCH ×2 (14:06→23:48)
--- NOTE | 2017-02-15 15:23 | Discharge Summary ---
Providers - Providers Patient information: Note initiated : 02/15/17 at 3:20 pm Service Date, if different from initiated Date: [] Patient: Francine Way 71 y/o F admitted on 02/15/17 for Right Total Knee Arthroplasty Jeanmarie. Chief Complaint: [] Discharge date: 02/16/17 Hospitalization Hospital course: Pt was admitted for R TKA. She underwent the procedure on the day of admission and was discharged on post-op day 1. She will f/u at [facility] in 2 weeks. She was provided appropriate pain meds, ASA for DVT prophylaxis, and out-patient PT. Discharge diagnosis: R knee osetoarthrosis Exam - Exam Clean and dry: Yes Weight bearing status: as tolerated Ortho Discharge - TKA - Patient Instructions Diet: Regular Diet Activity: activity as tolerated Total Knee Protocol: For Total Knee: Start ROM IRLANDA with stationary bike or rocking chair. Work on gaining full extension of knee. Posterior dislocation precautions provided. Hip abductor strengthening and gait training instructions provided. Apply Cryocuff as instructed. Dressing Care: May shower in 2 days - Follow Up Plan Disposition: Home, Self-Care Prognosis: Good Rehab Potential: Good Overall status at discharge: patient is progressing back to baseline - Orders For Discharge Prescriptions: Aspirin [Ecotrin] 325 mg PO BID #30 tab.ec HYDROcodone/APAP 10/325MG [[place] 10/325Mg] 1 - 2 tab PO Q4HP PRN #90 tab PRN Reason: Pain Level 3-6 traMADol [Ultram] 50 - 100 mg PO Q4-6HP PRN #100 tab PRN Reason: Pain Additional Discharge Orders: Physical Therapy at Discharge - TKA Location: Determined By Patient Walker Location: Determined By Patient Pending Studies Resuscitation Status Full Code Diet Regular Diet Start MonFeb 15 1452 Sodium Chloride (Sodium Chloride 0.9%) 1,000 mls @ 100 mls/hr IV .Q10H [facility] Last Admin: 02/15/17 14:06 Dose: 100 mls/hr Ketorolac Tromethamine (Toradol) 30 mg IV Q6 [facility] Stop: 02/17/17 06:01 Last Admin: 02/15/17 13:57 Dose: 30 mg Sodium Chloride (Saline Flush) 10 ml IV Q8 [facility] Last Admin: 02/15/17 14:06 Dose: 10 ml
[2017-02-15] MEDS ORDERED: DEXAMETHASONE 10 MG/ML VIAL IV ONE (15:44)
[2017-02-15] MEDS ORDERED: MIDAZOLAM 2 MG/2 ML VIAL IV ONE (15:44)
[2017-02-15] MEDS ORDERED: LIDOCAINE HCL/PF 100 MG/5 ML SYRINGE IV ONE (15:44)
[2017-02-15] MEDS ORDERED: KETAMINE 100 MG/ML ML IV ONE (15:44)
[2017-02-15] MEDS ORDERED: ONDANSETRON 4 MG/2 ML VIAL IV ONE (15:44)
[2017-02-15] MEDS ORDERED: PROPOFOL 200 MG/20 ML VIAL IV ONE (15:44)
[2017-02-15] MEDS ORDERED: GLYCOPYRROLATE 0.2 MG/ML VIAL IV ONE (15:44)
[2017-02-15] MEDS ORDERED: ePHEDrine 50 MG/ML AMPUL IV ONE (15:44)
[2017-02-15] MEDS ORDERED: PHENYLEPHRINE 10 MG/ML VIAL IV ONE (15:44)
[2017-02-15] MEDS: ceFAZolin 1 GM VIAL IV SCH ×2 (16:22→23:47)
[2017-02-15] MEDS: DOCUSATE SODIUM 100 MG CAPSULE PO SCH (20:12)
[2017-02-15] MEDS: ASPIRIN 325 MG ENTERIC COATED TABLET PO SCH (20:12)
[2017-02-15] MEDS ORDERED: SENNOSIDES 1 TABLET PO SCH (21:00)
[2017-02-16] MEDS: HYDROmorphone 2 MG/ML SYRINGE IV PRN (00:47)
[2017-02-16] MEDS: KETOROLAC 30 MG/ML VIAL IV SCH ×3 (05:28→13:14)
[2017-02-16] MEDS: 0.9 % SODIUM CHLORIDE 10 ML SYRINGE IV SCH ×2 (05:28→13:15)
--- NOTE | 2017-02-16 07:50 | Orthopedic Progress Note ---
Orthopedics - Auxillary Note - Subjective Patient Information: Note initiated : 02/16/17 at 7:48 am Service Date, if different from initiated Date: [] Patient: Francine Way 71 y/o F admitted on 02/15/17 for Right Total Knee Arthroplasty Jeanmarie. Chief Complaint: no c/o. Pt ready for discharge bandages c/d/i nvi-distal Vital Signs Temp Pulse Resp BP BP Pulse Ox 02/16/17 07:05 97.6 F 20 116/74 95 02/16/17 04:00 97.5 F 58 L 20 124/62 94 02/16/17 00:00 97.4 F 56 L 20 146/67 94 02/15/17 20:00 97.8 F 58 L 20 110/62 93 02/15/17 16:59 97.6 F 59 L 112/68 90 02/15/17 14:33 76 121/78 99 02/15/17 14:18 67 131/81 96 02/15/17 14:02 60 146/76 99 02/15/17 13:33 59 L 123/68 99 02/15/17 13:02 80 119/73 99 02/15/17 12:47 116/72 99 02/15/17 12:30 98.6 F 77 18 104/60 96 02/15/17 12:25 72 18 99/57 97 02/15/17 12:20 74 20 108/54 100 02/15/17 12:15 73 21 103/54 100 02/15/17 12:10 69 19 100/55 100 02/15/17 12:00 75 19 85/42 100 02/15/17 11:55 80 12 90/58 98 02/15/17 11:45 98.6 F 80 12 132/60 98 Intake and Output 02/15/17 02/16/17 02/16/17 21:59 05:59 13:59 Intake Total 790 / 790 1750 / 1750 Output Total 900 / 900 1150 / 1150 200 / 200 Balance -110 / -110 600 / 600 -200 / -200 Intake: IV 1000 / 1000 Sodium Chloride 0.9% 1,000 ml @ 1000 / 1000 100 mls/hr IV .Q10H [facility] Rx#: [id number] Oral 790 / 790 750 / 750 Output: Void Amount 900 / 900 1150 / 1150 200 / 200 Other: Meal Dinner Percent of Meal Consumed 100% Feeding Ability Independent Weight 223 lb Laboratory Results - last 24 hr 02/15/17 02/16/17 08:35 05:39 Hgb 10.7 L Hct 31.7 L Urine Color Yellow Urine Appearance Clear Urine pH 6.0 Ur Specific [place] 1.019 Urine Protein Neg Urine Glucose (UA) Negative Urine Ketones Neg Urine Occult Blood 0.2 A Urine Nitrate Neg Urine Bilirubin Neg Urine Urobilinogen Neg Ur Leukocyte Esterase Neg Urine RBC 11 H Urine WBC 1 Ur Squamous Epith Cells 1 Urine Bacteria 0 Urine Mucus Few Ur Culture Indicated? No s/p R TKA-stable mobilize with PT. Discharge pain meds switched from [place] to Tramadol
[2017-02-16] MEDS ORDERED: traMADol 50 MG TABLET PO PRN ×2 (07:51→11:45)
[2017-02-16] MEDS: 0.9 % SODIUM CHLORIDE 1,000 ML IV SCH (08:09)
[2017-02-16] MEDS: ASPIRIN 325 MG ENTERIC COATED TABLET PO SCH (08:10)
[2017-02-16] MEDS: DOCUSATE SODIUM 100 MG CAPSULE PO SCH (08:10)
--- NOTE | 2017-02-16 08:35 | Operative Note ---
DATE OF OPERATION: 02/15/2017 PREOPERATIVE DIAGNOSIS: Right knee severe osteoarthritis. POSTOPERATIVE DIAGNOSIS: Right knee severe osteoarthritis. PROCEDURE PERFORMED: Right robotic-assisted total knee arthroplasty using a Kat Triathlon size 2 cruciate retaining femoral component, size 2 tibial baseplate, an 11 mm X3 tibial insert with a 31 mm patellar button. SURGEON: Gaurav Hawkins M.D. FOSTER PARENT: Maximo Sykes PA-C. ANESTHESIA: Spinal plus general. DRAINS: None. SPECIMENS: Bone cuts, which were discarded. BLOOD LOSS: Less than 30 mL. POSTOPERATIVE CONDITION: Stable. INDICATIONS FOR SURGERY: This is a 71-year-old female who has had progressive worsening severe right knee pain. Radiographs showed severe multi-compartment osteoarthritis. FINDINGS AT SURGERY: She had severe tricompartmental osteoarthritis. Post implantation showed good limb alignment, patellar tracking, and joint stability. PROCEDURE IN DETAIL: The patient had been seen preoperatively. Informed consent had been obtained after discussion of risks and benefits of surgery. Risks including, but not limited to, bleeding, possibly requiring transfusion; infection, possibly requiring implant removal and prolonged IV antibiotics; injury to nerves, blood vessels or other surrounding structures; anesthetic risks; incomplete or no resolution of symptoms; stiffness; pain; swelling; instability; DVT and pulmonary embolus risks; and the possibility of needing further revision surgery. She understood these risks and wished to proceed. Correct operative site was marked in preoperative holding and the patient was given spinal anesthesia. She was then taken to the operating room and LMA general performed. The right lower extremity was then carefully prepped and draped in normal sterile fashion, and a time-out was performed verifying patient name, operative site, and plan. Esmarch was used to exsanguinate the extremity and tourniquet was inflated to 350 mmHg. A midline incision was made with a scalpel through skin and subcutaneous tissue. Irrisept was irrigated and then a medial parapatellar arthrotomy made. We irrigated with Irrisept again. Subperiosteal exposure was done of the anterior medial tibia and retropatellar fat pad excised. The anterior horns of the menisci were removed. ACL was transected. The distal anterior cortex of the femur was also exposed subperiosteally. We then made two stab incisions over the femur and two over the tibia and placed a total of four bicortical pins and then hooked the arrays to these pins. We then placed our femoral and tibial check points. We then used the green probe and checked our medial and lateral malleoli, and then hip center of rotation was checked. We then did our double-checks of our femoral and tibial checkpoints Once this was completed, we then used the blue probe to do our mapping. After this was completed, we used rongeur to remove osteophytes. We then checked our flexion and extension gaps and adjusted the implant until we had 17 mm gap medial and lateral in extension and lateral in flexion with an 18 mm gap in flexion. Her size and patellar tracking looked good, so we went ahead and then used the robotic assistance to do our bone cuts. The tibia was sized to a size 2 and externally rotated maximally as bone coverage would allow and pinned into place. We then used a [employer] reamer and keel punch to prepare. The femur was elevated and curved osteotome and curet used to remove posterior osteophytes. The femoral implant trial was impacted and pinned and then peg holes drilled. We trialed with a 9 insert. The knee was then taken into extension. Her patella was quite worn. Pre-resection thickness was only 18 mm. Freehand resection was done just coming through the defect and we sized post-resection to 14 mm. We chose a 31, medialized this maximally and drilled our peg holes. We then checked our patellar tracking, which was good, so we went ahead and removed trial implants. The definitive implants were opened except for the tibial insert. We irrigated the joint with Irrisept while our antibiotic cement was mixed. Once it had been a minute, we then pulse lavaged copiously with saline. We then cleaned and dried the cancellous bone surfaces with a CO2 gun and then cemented the tibia followed by the femur. A 9 insert trial was placed, and the knee was taken into extension. Excess cement removed and the patellar button was cemented. We then filled the joint with Irrisept, and then injected pain cocktail into the subcutaneous and pericapsular tissues. When cement had fully hardened, we pulse lavaged copiously with saline and then flexed the knee up. We did note that there was some slight hyperextension, so we went ahead and removed the 9 trial and trialed an 11. This had excellent stability, so we opened an 11 insert. We removed the trial, injected the remainder of the pain cocktail in the posteromedial capsule, and then irrigated Irrisept, and then impacted the final insert. After a minute we pulse lavaged copiously with saline and removed our checkpoints as well as our pins with the arrays. We then used a #2 FiberWire in interrupted [id number]-[id number] around the superior quadrant of the patella, interrupted #1 Vicryl [id number]-mu-[id number] around the inferior quadrant, running #1 Vicryl for patellar tendon and quad tendon. Final Irrisept irrigation was done, after a minute final pulse lavage, and then 2-0 Monocryl for subcutaneous and ryanne for skin. Xeroform and sterile dressing were applied. Tourniquet was released. The patient was awakened, extubated, and transferred to recovery in stable condition. BJB:cris Job ID: [id number] Doc ID: [id number] Gaurav Hawkins MD
== END 2017-02-16 15:45 | disposition home or self-care (01) | DRG 470 ==
LOC: MEDSUR 07:02
PROVIDERS: ADMIT Orthopaedic Surgery; ATTEND Orthopaedic Surgery

== ENCOUNTER 2018-01-31 07:05 | Inpatient (IN) ==
[2018-01-29 13:40] LABS: Appearance,Urine CLEAR; Bacteria,Urine 0 /hpf (0); Bilirubin,Urine NEG (NEG); Color,Urine YELLOW; Glucose,Urine (UA) NEGATIVE (NEG); Leukocyte Esterase,Urine NEG /uL (NEG); Protein,Urine NEG (NEG); Specific Gravity,Urine 1.017 (1.000-1.035); Urine Blood 0.03 mg/dL (<0.03); Urine RBC 2 /hpf (0-1); Urine Squamous Epithelial Cell 2 /hpf (0-4); Urine WBC < 1 /hpf (0-4); Urobilinogen,Urine NEG (NEG)
[2018-01-29 13:53] LABS: Basophils # (Auto) 0 K/mcL (0.0-0.3); Basophils % (Auto) 0.3 % (0.0-2.0); Eosinophils # (Auto) 0.1 K/mcL (0.0-0.7); Eosinophils % (Auto) 1.3 % (0.0-7.0); Granulocytes % (Auto) 64.1 % (38.0-78.0); Lymphocytes # (Auto) 1.5 K/mcL (1.5-4.8); Mean Cell Volume 91.4 fL (80.0-100.0); Mean Corpuscular HGB Conc 33.9 g/dL (31.0-36.0); Monocytes # (Auto) 0.3 K/mcL (0.1-0.9); Monocytes % (Auto) 6.3 % (1.0-12.0); Platelet Count 165 K/mcL (140-440); Red Cell Distribution Width 13.6 % (11.5-14.5)
[2018-01-29 14:11] LABS: Blood Urea Nitrogen 16 mg/dl (8-23)
[2018-01-29 14:12] LABS: Estimated Average Glucose(eAG) 111 mg/dL; Hemoglobin A1C 5.5 % HGB (4.0-6.0)
[~2018-01-31 07:05] MED LIST changes: -KETOROLAC 30 MG, ROPIVACAINE HCL/PF 49.5 ML, EPINEPHrine 0.5 MG, 0.9 % SODIUM CHLORIDE ... IJ SCH
[2018-01-31] MEDS ORDERED: HEPARIN 20,000 UNIT/ML VIAL IR ONE (07:16)
[2018-01-31] MEDS ORDERED: MIDAZOLAM 5 MG/5 ML VIAL IV ONE (08:45)
[2018-01-31] MEDS ORDERED: TRANEXAMIC ACID 1,000 MG/10 ML VIAL IV ONE ×2 (08:45→10:25)
[2018-01-31] MEDS ORDERED: ONDANSETRON 4 MG/2 ML VIAL IV ONE (08:45)
[2018-01-31] MEDS ORDERED: LIDOCAINE HCL/PF 100 MG/5 ML SYRINGE IV ONE (08:45)
[2018-01-31] MEDS ORDERED: ePHEDrine 50 MG/ML AMPUL IV ONE (08:45)
[2018-01-31] MEDS ORDERED: DEXAMETHASONE 10 MG/ML VIAL IV ONE (08:45)
[2018-01-31] MEDS ORDERED: PROPOFOL 200 MG/20 ML VIAL IV ONE (08:45)
[2018-01-31] MEDS ORDERED: LACTATED RINGERS 1,000 ML IV SCH (10:15)
[2018-01-31] MEDS ORDERED: ACETAMINOPHEN 1,000 MG/100 ML BOTTLE IV ONE (10:15)
[2018-01-31] MEDS ORDERED: BENZOCAINE/MENTHOL 1 LOZENGE PO PRN ×2 (10:15→10:25)
[2018-01-31] MEDS ORDERED: ONDANSETRON 4 MG/2 ML VIAL IV PRN ×2 (10:15→10:25)
[2018-01-31] MEDS ORDERED: IPRATROPIUM/ALBUTEROL 3 ML AMPUL.NEB NEB PRN (10:15)
[2018-01-31] MEDS ORDERED: NALOXONE HCL 0.4 MG/ML VIAL IV PRN (10:15)
[2018-01-31] MEDS ORDERED: LACTATED RINGERS 250 ML IV PRN (10:15)
[2018-01-31] MEDS ORDERED: MEPERIDINE 25 MG/ML SYRINGE IV PRN (10:15)
[2018-01-31] MEDS ORDERED: fentaNYL 100 MCG/2 ML VIAL IV PRN (10:15)
[2018-01-31] MEDS ORDERED: HYDROmorphone 2 MG/ML VIAL IV PRN ×2 (10:15→10:25)
[2018-01-31] MEDS ORDERED: METHOCARBAMOL 1,000 MG/10 ML VIAL IV PRN (10:15)
[2018-01-31] MEDS ORDERED: FLUMAZENIL 0.1 MG/ML ML IV PRN (10:15)
[2018-01-31] MEDS ORDERED: PROMETHAZINE 25 MG/ML VIAL IV PRN (10:15)
[2018-01-31] MEDS ORDERED: POLYETHYLENE GLYCOL 3350 17 GM PACKET PO PRN (10:25)
[2018-01-31] MEDS ORDERED: FLEETS ADULT ENEMA PR PRN (10:25)
[2018-01-31] MEDS ORDERED: KETOROLAC 15 MG/ML VIAL IV PRN (10:25)
[2018-01-31] MEDS ORDERED: BISACODYL 10 MG SUPP.RECT PR PRN (10:25)
[2018-01-31] MEDS ORDERED: MAGNESIUM HYDROXIDE 30 ML ORAL.SUSP PO PRN (10:25)
--- NOTE | 2018-01-31 10:25 | Brief Operative Note ---
Date of procedure: 01/31/18 Pre-op diagnosis: R hip severe DJD Post-op diagnosis: same Procedure: Right anterior total hip arthroplasty Grafts/Implants: Yes (Depuy 4 std Actis stem, +1 32 delta head, 48 cup, neutral altrx liner) Anesthesia: spinal, GLMA Findings: severe arthritis, acetabular dysplasia Complications: none Surgeon: Gaurav Hawkins Ship Runner: Jamal Sykes Estimated blood loss (cc): 350 Specimens Removed/Pathology: none sent Condition: stable Disposition: PACU
--- NOTE | 2018-01-31 10:47 | XRay Report ---
CLINICAL INFORMATION: Right total hip arthroplasty TECHNIQUE: Intraoperative fluoroscopy utilized. Intraoperative spot films obtained. 0.6 minutes fluoroscopy utilized by Dr. Hawkins IMPRESSION: Intraoperative fluoroscopy utilized for right total hip arthroplasty. Interpreted and Authenticated by: Gregory Escamilla 01/31/18
--- NOTE | 2018-01-31 11:10 | Operative Note ---
DATE OF OPERATION: 01/31/2018 PREOPERATIVE DIAGNOSIS: Right hip severe osteoarthritis. POSTOPERATIVE DIAGNOSIS: Right hip severe osteoarthritis. PROCEDURE PERFORMED: Right anterior total hip arthroplasty placing a DePuy Actis size 4 standard offset femoral stem, +1 32 mm delta ceramic head ball, 48 3-hole [place] cup with a neutral AltrX liner. SURGEON: Gaurav Hawkins MD PROCUREMENT AGENT: Maximo Sykes PA-C ANESTHESIA: Spinal plus general. DRAINS: None. SPECIMENS: Femoral head which was discarded. BLOOD LOSS: 350 mL COMPLICATIONS: None. POSTOPERATIVE CONDITION: Stable. INDICATIONS FOR SURGERY: This is a 72-year-old female who has had progressive worsening hip pain. Radiographs showed severe jnic-sv-iqmq arthritis. FINDINGS AT SURGERY: She had severe wtjl-nd-ssir arthritis with acetabular dysplasia. Post-implantation showed satisfactory implant position, leg length, equality and offset. PROCEDURE IN DETAIL: The patient had been seen preoperatively. Informed consent had been obtained after discussion of risks and benefits of surgery. Risks including, but not limited to, bleeding, possibly requiring transfusion; infection, possibly requiring implant removal and prolonged IV antibiotics; injury to nerves, blood vessels or other surrounding structures; anesthetic risks; incomplete or no resolution of symptoms; leg length discrepancy; dislocation; fracture; DVT and pulmonary embolus risks; and the possibility of needing further revision joint surgery. She understood and wished to proceed. Correct operative site was marked in preoperative holding and patient received spinal anesthesia. She was then taken to the operating room and LMA general given. She was carefully positioned on the fracture table and the right hip and groin were carefully prepped and draped in normal sterile fashion and a timeout was performed verifying patient name, operative site, and plan. Ioban was used to cover all skin surfaces. A standard anterior approach incision was made with a scalpel through skin and subcutaneous tissue. Hemostasis was obtained with Bovie cautery. We continued blunt dissection down onto the tensor fascia. She did have a fairly deep subcutaneous fat layer, which we undermined. We irrigated with IrriSept and then placed a ring retractor. Tensor fascia was incised in line with the muscle fibers and then careful blunt dissection was taken medial to the muscle belly. Blunt cobra retractors were placed on the superior and inferior neck and then circumflex vessels were coagulated and cut and vastus fascia was split distally. An anterior capsulectomy was performed and then the blunt cobra retractors were placed intracapsular. The capsule was then released out toward the trochanters. Traction was placed on the leg and a corkscrew placed in the femoral head. Osteotome was used under fluoro to identify our neck cut and then an oscillating tip saw used to make our osteotomy. The acetabulum was then exposed. Labrum was excised circumferentially. Bone wax was placed on the cut neck surface to decrease bleeding. We then started reaming, initially directly medializing to the floor of the tear drop and then increasing reamer size to a 47 reamer. It appeared that she had some dysplasia and we did not think increasing cup size was going to give us better pressfit, so I just went ahead and opened a 3-hole 48 [place] cup. Acetabulum was irrigated with IrriSept, after a minute was pulse lavaged with saline. We then impacted the cup with the [id number]. However, we were unable to get press fit initially. We removed the cup. I then medialized and went a little bit more proximal with the reamer. We reirrigated and then reimpacted the cup. This time we did get some mild pressfit. We went ahead and then chose to place a screw. We drilled in the posterior superior quadrant. We used a 20 drill and opened a #25 screw. We did not get very good bone purchase with the screw, so I went ahead and drilled and placed a second screw even more posterior. This exited out the posterior acetabulum, measured about 17 mm, so I went ahead and chose a #20 to try and get some cortical fixation. Even this was limited quality fixation. We placed a center hole cover. A 32 neutral AltrX liner was opened. The tabs were carefully aligned and then a liner was impacted. It seated fully and we verified with a tonsil clamp going around the tabs circumferentially. Traction was released from the leg. We released the capsule around the medial and posterior neck. The leg was then extended and adducted. Capsule was released out to the greater trochanter and then once we had adequate proximal femur exposure a box osteotome was used to gain canal entry. An awl was used to identify the trajectory, a rongeur and rasp were used to lateralize. We then began sequentially broaching up to a size 4, which seated about a millimeter below our neck cut. We calcar planed down and then placed a standard offset neck trial with a +1 head ball. The hip was reduced. AP pelvis was taken to verify neutral rotation and AP of the nonoperative and operative hips were taken and overlaid. It appeared that our leg length and offset were very close to one another, so we went ahead and checked stem size which appeared to be appropriately sized. We dislocated and removed the trial implant and definitive 4 standard offset Actis stem was opened. The canal was irrigated with IrriSept, after a minute was pulse lavaged copiously irrigated with saline. We then impacted the stem until the collar seated on the neck. We then opened a +1 head ball. The stem was carefully cleaned and dried and the head ball impacted with several blows. We then reduced the hip. Final fluoro images were taken and saved and printed. We irrigated with more IrriSept, after a minute irrigated more saline and then #1 Vicryl stitch was used to close the tensor fascia with two running stitches. We then removed the ring retractor and irrigated with IrriSept again, and after a minute pulse lavaged and then Vicryl was used to tack the fat to fascia, 2-0 Monocryl for subcutaneous and ryanne for skin. Xeroform sterile dressings were applied. The patient was then awakened, extubated, and transferred to recovery in stable condition. BJB:davide Job ID: [id number] Doc ID: [id number] Gaurav SIMON
--- NOTE | 2018-01-31 11:28 | XRay Report ---
CLINICAL INFORMATION: Right hip replacement TECHNIQUE: AP pelvis. AP and crosstable lateral right hip COMPARISON: None. FINDINGS: Status post right total hip arthroplasty. Femoral head and acetabular components are in anatomic positions. There is postsurgical soft tissue and intra-articular gas. IMPRESSION: Status post right hip replacement. Interpreted and Authenticated by: Gregory Escamilla 01/31/18
[2018-01-31] MEDS ORDERED: GLYCOPYRROLATE 0.2 MG/ML VIAL IV ONE (11:34)
[2018-01-31] MEDS: 0.9 % SODIUM CHLORIDE 10 ML SYRINGE IV SCH ×2 (12:53→22:30)
[2018-01-31] MEDS: CALCIUM W/VIT D3 500 MG TABLET PO SCH ×2 (12:54→16:15)
[2018-01-31] MEDS: oxyCODONE/APAP 5/325MG TABLET PO PRN ×3 (12:59→20:01)
[2018-01-31] MEDS: 0.9 % SODIUM CHLORIDE 1,000 ML IV SCH ×2 (13:04→19:56)
[2018-01-31] MEDS: ceFAZolin 1 GM VIAL IV SCH (16:14)
[2018-01-31] MEDS: ASPIRIN 325 MG ENTERIC COATED TABLET PO SCH (19:56)
[2018-01-31] MEDS: DOCUSATE SODIUM 100 MG CAPSULE PO SCH (19:56)
[2018-01-31] MEDS ORDERED: SENNOSIDES 1 TABLET PO SCH (21:00)
[2018-01-31] MEDS ORDERED: BIOTIN PO SCH (21:00)
[2018-01-31] MEDS ORDERED: MV IRON MIN PO SCH (21:00)
[2018-01-31] MEDS ORDERED: FOLIC ACID PO SCH (21:00)
[2018-02-01] MEDS: ceFAZolin 1 GM VIAL IV SCH (00:39)
[2018-02-01] MEDS: 0.9 % SODIUM CHLORIDE 1,000 ML IV SCH ×2 (04:14→12:40)
--- NOTE | 2018-02-01 07:25 | Discharge Summary ---
Providers - Providers Patient information: Note initiated : 02/01/18 at 7:21 am Service Date, if different from initiated Date: [] Patient: Francine Way 72 y/o F admitted on 01/31/18 for Right Total Hip Arthroplasty. Chief Complaint: [] Discharge date: 02/01/18 Hospitalization Hospital course: Pt was admitted for a RAE. Pt underwent the procedure on the day of admission. Pt spent one night on the floor for IV abx, IV pain meds and PT prior to discharge. Pt will take ASA for DVT prophylaxis and attend out-pt PT. Will f/u in 2 weeks. Discharge diagnosis: R hip OA Exam - Exam Clean and dry: Yes Weight bearing status: as tolerated Ortho Discharge - RAE - Patient Instructions Diet: Regular Diet Activity: activity as tolerated Total Hip Protocol: Follow activity instructions as provided by Physical Therapy. Dressing Care: May shower in 2 days - Follow Up Plan Disposition: Home, Self-Care Prognosis: Good Rehab Potential: Good Overall status at discharge: patient is progressing back to baseline - Orders For Discharge Prescriptions: Aspirin [Ecotrin] 325 mg PO BID #60 tab.ec oxyCODONE/APAP [Percocet 5-325 mg] 1 - 2 tab PO Q4HP PRN #90 tab PRN Reason: Pain Level 3-6 Pending Studies Resuscitation Status Full Code Diet Regular Diet Start MonJan 31 1027 Aspirin (Ecotrin) 325 mg PO BID [facility] Last Admin: 01/31/18 19:56 Dose: 325 mg Calcium/Vitamin D (Calcium W/Vit D3) 500 mg PO TIDCC [facility] Last Admin: 01/31/18 16:15 Dose: 500 mg Admin: 01/31/18 12:54 Dose: Not Given Docusate Sodium (Colace) 100 mg PO BID [facility] Last Admin: 01/31/18 19:56 Dose: 100 mg Sodium Chloride (Sodium Chloride 0.9%) 1,000 mls @ 125 mls/hr IV .Q8H [facility] Last Admin: 02/01/18 04:14 Dose: 125 mls/hr Infusion: 02/01/18 03:56 Dose: 125 mls/hr Admin: 01/31/18 19:56 Dose: 125 mls/hr Infusion: 01/31/18 19:56 Dose: 125 mls/hr Admin: 01/31/18 13:04 Dose: 125 mls/hr Oxycodone/Acetaminophen (Percocet 5-325 Mg) 0 tab PO Q4HP PRN PRN Reason: PAIN LEVEL 3-6 Last Admin: 01/31/18 20:01 Dose: 2 tab Admin: 01/31/18 16:33 Dose: 2 tab Admin: 01/31/18 12:59 Dose: 2 tab Mv,Iron,Min/Folic Acid/Biotin [Hair Formula] Tablet 1 dose PO HS [facility]AYO[facility] Last Admin: 01/31/18 22:30 Dose: Senna (Senokot) 2 tab PO HS KAYODE Last Admin: 01/31/18 19:55 Dose: 2 tab Sodium Chloride (Saline Flush) 10 ml IV Q8 [facility] Last Admin: 01/31/18 22:30 Dose: Not Given Admin: 01/31/18 12:53 Dose: Not Given Shift Summary 02/01/18 04:53 Shift Summary by Nahomy Grijalva AA&O x4; bradycardic throughout most of shift, as low as 40 BPM for several hours, asymptomatic, BP WNL; pt states she exercises in pool/Diversion x5 per week and walks 15 minutes each day and has been told by a physician that she has an "athletic heart rate." Last VS: BP 113/60, HR 50, afebrile; walking with FWW in room independently; following precautions on mobility; very aware of proper movement; motivated and using ISB; voiding well with PVR 38mL; last void 650 mL with multiple voids that missed the hat, drinking plenty of water; IVF continue overnight; pain managed with prn Percocet x2 this shift and scheduled meds; pt hoping to go home today with spouse pending physician approval. Initialized on 02/01/18 04:53 - END OF NOTE
[2018-02-01] MEDS: 0.9 % SODIUM CHLORIDE 10 ML SYRINGE IV SCH ×2 (08:23→13:59)
[2018-02-01] MEDS ORDERED: CYANOCOBALAMIN (VITAMIN B-12) 500 MCG TABLET PO SCH (09:00)
[2018-02-01] MEDS ORDERED: FOLIC ACID PO SCH (09:00)
[2018-02-01] MEDS ORDERED: VITAMIN B COMPLEX 1 CAPSULE PO SCH (09:00)
[2018-02-01] MEDS ORDERED: MV IRON MIN PO SCH (09:00)
[2018-02-01] MEDS ORDERED: BIOTIN PO SCH (09:00)
[2018-02-01] MEDS: CALCIUM W/VIT D3 500 MG TABLET PO SCH ×2 (09:12→14:55)
[2018-02-01] MEDS: DOCUSATE SODIUM 100 MG CAPSULE PO SCH (09:12)
[2018-02-01] MEDS: ASPIRIN 325 MG ENTERIC COATED TABLET PO SCH (09:15)
[2018-02-01] MEDS: oxyCODONE/APAP 5/325MG TABLET PO PRN (13:25)
== END 2018-02-01 14:35 | disposition home or self-care (01) | DRG 470 ==
LOC: MEDSUR 07:05
PROVIDERS: ADMIT Orthopaedic Surgery; ATTEND Orthopaedic Surgery
CPT/HCPCS: 62322; 73502; C1713; C1776; J0131; J0690; J1100; J1644; J2001; J2250; J2405; J7030; J7120

== ENCOUNTER 2018-08-15 04:56 | Inpatient (IN) ==
[2018-08-08 15:44] LABS: Basophils # (Auto) 0 K/mcL (0.0-0.3); Basophils % (Auto) 0.4 % (0.0-2.0); Eosinophils # (Auto) 0.1 K/mcL (0.0-0.7); Eosinophils % (Auto) 1.1 % (0.0-7.0); Granulocytes % (Auto) 66.6 % (38.0-78.0); Hematocrit 38.2 % (36.0-48.0); Hemoglobin 12.7 g/dL (12.0-15.0); Lymphocytes # (Auto) 1.6 K/mcL (1.5-4.8); Lymphocytes % (Auto) 25.5 % (15.5-49.0); Mean Cell Volume 90.7 fL (80.0-100.0); Mean Corpuscular HGB Conc 33.3 g/dL (31.0-36.0); Mean Platelet Volume 10.3 fL (7.4-10.4); Monocytes # (Auto) 0.4 K/mcL (0.1-0.9); Monocytes % (Auto) 6.4 % (1.0-12.0); Platelet Count 180 K/mcL (140-440); RBC 4.21 M/mcL (4.00-5.20); WBC 6.4 K/mcL (4.5-11.0)
[2018-08-08 15:55] LABS: Blood Urea Nitrogen 24 mg/dl (8-23); Carbon Dioxide 27 mmol/L (22-30); Chloride 107 mmol/L (96-108); Glomerular Filtration Rate 65; Glucose 86 mg/dL (70-105); Potassium 3.7 mmol/L (3.3-5.1); Sodium 145 mmol/L (133-145)
[2018-08-08 16:03] LABS: Estimated Average Glucose(eAG) 111 mg/dL; Hemoglobin A1C 5.5 % HGB (4.0-6.0)
[2018-08-08 16:51] LABS: Appearance,Urine CLOUDY; Bilirubin,Urine NEG (NEG); Color,Urine YELLOW; Culture Indicated,Urine NO; Glucose,Urine (UA) NEGATIVE (NEG); Ketones,Urine 5/TR mg/dL (NEG); Leukocyte Esterase,Urine NEG /uL (NEG); Nitrate,Urine NEG (NEG); Protein,Urine NEG (NEG); Specific Gravity,Urine 1.029 (1.000-1.035); Urine Blood NEG mg/dL (<0.03); Urobilinogen,Urine NEG (NEG)
[2018-08-15] MEDS ORDERED: IPRATROPIUM/ALBUTEROL 3 ML AMPUL.NEB NEB PRN ×2 (05:00→10:18)
[2018-08-15] MEDS ORDERED: SCOPOLAMINE 1 PATCH PATCH TOPICAL PRN (05:00)
[2018-08-15] MEDS ORDERED: 0.9 % SODIUM CHLORIDE 9 ML, KETOROLAC 30 MG, ROPIVACAINE HCL/PF 49.5 ML, EPINEPHrine 0.... IJ SCH (06:00)
[2018-08-15] MEDS ORDERED: CELECOXIB 200 MG CAPSULE PO SCH (06:00)
[2018-08-15] MEDS ORDERED: oxyCODONE 10 MG TAB.ER.12H PO SCH (06:00)
[2018-08-15] MEDS ORDERED: ceFAZolin 2 GM in DEXTROSE 5% IN WATER 50 ML IV SCH (06:00)
[2018-08-15] MEDS ORDERED: PREGABALIN 75 MG CAPSULE PO SCH (06:00)
[2018-08-15] MEDS ORDERED: DEXAMETHASONE 10 MG/ML VIAL IV ONE (07:45)
[2018-08-15] MEDS ORDERED: ePHEDrine 50 MG/ML AMPUL IV ONE (07:45)
[2018-08-15] MEDS ORDERED: PROPOFOL 200 MG/20 ML VIAL IV ONE (07:45)
[2018-08-15] MEDS ORDERED: LIDOCAINE HCL/PF 100 MG/5 ML SYRINGE IV ONE (07:45)
[2018-08-15] MEDS ORDERED: PHENYLEPHRINE 10 MG/ML VIAL IV ONE (07:45)
[2018-08-15] MEDS ORDERED: ONDANSETRON 4 MG/2 ML VIAL IV ONE (07:45)
[2018-08-15] MEDS ORDERED: GLYCOPYRROLATE 0.2 MG/ML VIAL IV ONE (07:45)
[2018-08-15] MEDS ORDERED: TRANEXAMIC ACID 1,000 MG/10 ML VIAL IV ONE ×2 (07:45→09:24)
[2018-08-15] MEDS ORDERED: fentaNYL 100 MCG/2 ML VIAL IV ONE (07:45)
[2018-08-15] MEDS ORDERED: MIDAZOLAM 2 MG/2 ML VIAL IV ONE (07:45)
[2018-08-15] MEDS ORDERED: ROPIVACAINE HCL/PF 20 ML VIAL IJ ONE (07:45)
[2018-08-15] MEDS ORDERED: KETAMINE 100 MG/ML ML IV ONE (07:45)
--- NOTE | 2018-08-15 09:23 | Brief Operative Note ---
Date of procedure: 08/15/18 Pre-op diagnosis: Left knee severe DJD Post-op diagnosis: same Procedure: Left robotic assisted total knee arthroplasty Grafts/Implants: Yes (Kat Triathlon CR 2 femur, 2 tibia, 10mm insert, 31 patella) Anesthesia: spinal, GLMA Findings: severe multicompartment arthritis Complications: none Surgeon: Gaurav Hawkins Asset Recovery Specialist: Jamal Sykes Estimated blood loss (cc): 30 Specimens Removed/Pathology: none sent Condition: stable Disposition: PACU
[2018-08-15] MEDS ORDERED: BENZOCAINE/MENTHOL 1 LOZENGE PO PRN (09:24)
[2018-08-15] MEDS ORDERED: ONDANSETRON 4 MG/2 ML VIAL IV PRN ×2 (09:24→10:18)
[2018-08-15] MEDS ORDERED: FLEETS ADULT ENEMA PR PRN (09:24)
[2018-08-15] MEDS ORDERED: HYDROmorphone 2 MG/ML VIAL IV PRN (09:24)
[2018-08-15] MEDS ORDERED: BISACODYL 10 MG SUPP.RECT PR PRN (09:24)
[2018-08-15] MEDS ORDERED: MAGNESIUM HYDROXIDE 30 ML ORAL.SUSP PO PRN (09:24)
[2018-08-15] MEDS ORDERED: POLYETHYLENE GLYCOL 3350 17 GM PACKET PO PRN (09:24)
--- NOTE | 2018-08-15 10:01 | Operative Note ---
DATE OF OPERATION: 08/15/2018 PREOPERATIVE DIAGNOSIS: Left knee severe multi-compartment osteoarthritis. POSTOPERATIVE DIAGNOSIS: Left knee severe multi-compartment osteoarthritis. PROCEDURE PERFORMED: Left robotic-assisted total knee arthroplasty placing a Kat Triathlon size 2 cruciate retaining femoral component, size 2 tibial baseplate, a 10 mm X3 tibial insert with a 31 mm patellar button. SURGEON: Gaurav Hawkins M.D. TERMINAL OPERATIONS SUPERVISOR: Maximo Sykes PA-C. The PA's assistance was required for the safe and efficient completion of the entire case. This provider's expertise and technical skill were required throughout the case. The PA assisted with preoperative coordination, intraoperative retraction, wound closure, dressing and splint application, as well as postoperative documentation and care coordination. ANESTHESIA: Spinal plus general. DRAINS: None. SPECIMENS: Bone cuts which were discarded. BLOOD LOSS: 30 mL. COMPLICATIONS: None. POSTOPERATIVE CONDITION: Stable. INDICATIONS FOR SURGERY: This is a 72-year-old female who has had longstanding, worsening left knee pain. Radiographs showed severe rflt-bw-[id number] osteoarthritis. She had a previous right total knee arthroplasty by me with good result. FINDINGS AT SURGERY: She had severe multi-compartment osteoarthritis with valgus deformity. Post implantation showed good limb alignment, patellar tracking, and stability. PROCEDURE IN DETAIL: The patient had been seen preoperatively. Informed consent had been obtained after discussion of risks and benefits of surgery. Risks including, but not limited to, bleeding; infection, possibly requiring implant removal; prolonged IV antibiotics; injury to nerves, blood vessels, and other surrounding structures; anesthetic risks; incomplete or no resolution of symptoms; stiffness; swelling; pain; instability; DVT and pulmonary embolus risks; clunking; possibility of needing further revision surgery. She understood and wished to proceed. Correct operative site was marked and then patient received spinal anesthesia. She was then taken to the operating room and LMA general given. The left lower extremity was carefully prepped and draped in normal sterile fashion, and a time-out was performed verifying patient name, operative site, and plan. Esmarch was used to exsanguinate the extremity and tourniquet was inflated to 350 mmHg. Ioban was used to cover all skin surfaces, and then a midline incision was made with a scalpel through skin and subcutaneous tissue. Hemostasis was obtained with Bovie cautery. Irrisept was irrigated and then a medial parapatellar arthrotomy made. Subperiosteal exposure was done of the anterior medial tibia and then retropatellar fat pad and the anterior horns of the menisci were excised. ACL was transected. Femoral and tibial checkpoints were placed. Two stab incisions were made over the femur and two over the tibia and bicortical pins placed and then the arrays were connected. We did our hip center of rotation check. The green probe was used to identify the medial and lateral malleolus and double check our checkpoints. Blue probe was then used to do our mapping. After this was completed, a rongeur was used to remove osteophytes and then we checked our flexion-extension gaps. It took 3 degrees of varus in the tibia and a half a degree in the femur to give us 17 mm gaps on all four corners. We then checked patellar tracking which was good. We went ahead and then used the robotic arm to make our bone cuts. The tibia was sized to a 2 and externally rotated as bone coverage would allow. This was pinned into place and then boss reamer and keel punch used to prepare and then a keeled tibial trial was placed. Femur was elevated and a curved osteotome and curet were used to remove posterior osteophytes. Femoral trial component was pinned into place and then peg holes were drilled. A 9 insert trial was impacted, and the knee was taken into extension. We were about 5 degrees short of full. We sized the patella. Pre-resection was between 19 and 21 mm depending on which way it was measured, so we went ahead and freehand cut. Post-resection was 11 mm, and we sized to a 31 which was medialized maximally. Peg holes were drilled and then the patellar trial was placed. A limited lateral facetectomy was performed with a saw. We checked our post-reconstruction thickness which was 20. We then checked our patellar tracking which was good, without tilt or subluxation, so we went ahead and removed trial implants. Definitive implants were opened except for the tibial insert. Antibiotic cement was mixed while we filled the joint with Irrisept. After a minute we pulse lavaged copiously with saline. CO2 gun was used to clean and dry the cancellous bone surfaces and then we cemented the tibia. Excess cement was removed. We cemented the femur and excess cement removed. A 9 insert trial was impacted, and the knee was taken into extension and the patellar button was cemented. While cement was hardening, we filled the joint with Irrisept. We removed our checkpoints and injected pain cocktail into the pericapsular and subcutaneous tissues. The pins were also removed from the arrays. We were down to 3 degrees short of full extension prior to removing the arrays, so I went ahead and after cement had fully hardened, we flexed the knee up. We removed the 9 insert trial, injected pain cocktail in the posterior medial capsule, and then a 10 insert was opened. We irrigated Irrisept onto the tray and then impacted the 10 insert. The knee was then irrigated with Irrisept completely, after a minute pulse lavaged with saline. The knee was then taken into about 45 degrees of flexion. Interrupted #2 FiberWire [id number]-ga-[id number] was used around the superior quadrant of the patella, interrupted #1 Vicryl cwylus-wo-wluxg around the inferior quadrant. Running #1 Vicryl was used for patellar tendon and quad tendon. A final Irrisept irrigation was done. After a minute, final pulse lavage with saline was done. Fat was tacked to fascia with Vicryl and then a 2-0 Monocryl was used for subcutaneous and ryanne for skin. Xeroform and sterile dressing were applied. Tourniquet was released. The patient was awakened, extubated, and transferred to recovery in stable condition. RA:cris Job ID: [id number] Doc ID: [id number] Gaurav Hawkins MD
[2018-08-15] MEDS ORDERED: ACETAMINOPHEN 1,000 MG/100 ML BOTTLE IV ONE (10:18)
[2018-08-15] MEDS ORDERED: METHOCARBAMOL 1,000 MG/10 ML VIAL IV PRN (10:18)
[2018-08-15] MEDS ORDERED: MEPERIDINE 25 MG/ML SYRINGE IV PRN (10:18)
--- NOTE | 2018-08-15 10:25 | XRay Report ---
CLINICAL INFORMATION: Postsurgical follow-up TECHNIQUE: AP, oblique, patellar views COMPARISON: None. FINDINGS: Previous left total knee arthroplasty. Femoral and tibial components are in anatomic position. There is soft tissue and intra-articular gas. IMPRESSION: Status post left total knee arthroplasty Interpreted and Authenticated by: Gregory Escamilla 08/15/18
[2018-08-15] MEDS ORDERED: LACTATED RINGERS 1,000 ML IV SCH (10:30)
[2018-08-15] MEDS: 0.9 % SODIUM CHLORIDE 1,000 ML IV SCH ×2 (11:43→20:21)
[2018-08-15] MEDS: CALCIUM W/VIT D3 500 MG TABLET PO SCH ×2 (11:43→17:20)
[2018-08-15] MEDS: KETOROLAC 15 MG/ML VIAL IV SCH ×3 (11:43→23:35)
[2018-08-15] MEDS: oxyCODONE/APAP 5/325MG TABLET PO PRN ×3 (13:06→22:21)
[2018-08-15] MEDS: 0.9 % SODIUM CHLORIDE 10 ML SYRINGE IV SCH ×2 (13:07→22:32)
[2018-08-15] MEDS: ceFAZolin 1 GM VIAL IV SCH ×2 (15:44→23:35)
[2018-08-15] MEDS: ASPIRIN 81 MG TAB.CHEW PO SCH (20:16)
[2018-08-15] MEDS: DOCUSATE SODIUM 100 MG CAPSULE PO SCH (20:16)
[2018-08-15] MEDS ORDERED: BIOTIN PO SCH (21:00)
[2018-08-15] MEDS ORDERED: FOLIC ACID PO SCH (21:00)
[2018-08-15] MEDS ORDERED: MV IRON MIN PO SCH (21:00)
[2018-08-15] MEDS ORDERED: SENNOSIDES 1 TABLET PO SCH (21:00)
[2018-08-16] MEDS: oxyCODONE/APAP 5/325MG TABLET PO PRN ×2 (04:17→09:18)
[2018-08-16] MEDS: KETOROLAC 15 MG/ML VIAL IV SCH ×2 (05:38→11:19)
[2018-08-16] MEDS: 0.9 % SODIUM CHLORIDE 1,000 ML IV SCH (05:39)
[2018-08-16] MEDS: 0.9 % SODIUM CHLORIDE 10 ML SYRINGE IV SCH (05:39)
[2018-08-16] MEDS: ASPIRIN 81 MG TAB.CHEW PO SCH (08:00)
[2018-08-16] MEDS: DOCUSATE SODIUM 100 MG CAPSULE PO SCH (08:00)
[2018-08-16] MEDS: CALCIUM W/VIT D3 500 MG TABLET PO SCH ×2 (08:00→11:20)
--- NOTE | 2018-08-16 08:11 | Orthopedic Progress Note ---
Subjective Patient information: Note initiated : 08/16/18 at 8:09 am Service Date, if different from initiated Date: [] Patient: Francine Way 72 y/o F admitted on 08/15/18 for Left Robotic Total Knee Arthroplasty. Overall doing well, ambulating on her own with walker. Her pain is managed. Denies SOB, chest pain, nausea, vomiting. Chief Complaint: [s/p left TKA] Pertinent ROS: negative except per HPI. Objective Vital signs: Vital Signs Temp Pulse Resp BP BP Pulse Ox 08/16/18 06:48 98.2 F 16 114/62 95 08/16/18 04:08 98.0 F 55 L 18 119/61 94 08/15/18 23:54 97.7 F 47 L 20 122/64 95 08/15/18 19:29 97.6 F 51 L 20 107/56 93 08/15/18 16:44 97.8 F 46 L 12 127/61 97 08/15/18 12:40 45 L 133/72 98 08/15/18 11:40 51 L 113/73 95 08/15/18 11:25 42 L 101/59 92 08/15/18 11:15 40 L 97 08/15/18 10:58 41 L 12 108/64 93 08/15/18 10:40 96.8 F L 42 L 12 105/61 96 08/15/18 10:33 97.1 F 65 18 104/54 99 08/15/18 10:27 63 17 104/54 99 08/15/18 10:17 58 L 20 117/63 96 08/15/18 10:07 70 20 116/65 95 08/15/18 09:57 68 19 116/65 93 08/15/18 09:52 65 17 95/50 100 08/15/18 09:47 66 17 96/50 98 08/15/18 09:42 97.2 F 66 16 106/50 98 Intake and Output 08/15/18 08/16/18 08/16/18 21:59 05:59 13:59 Intake Total 1903 625 Output Total 2150 1300 Balance -823 -994 Intake: IV 863 Sodium Chloride 0.9% 1,000 ml @ 863 100 mls/hr IV .Q10H KAYODE Rx#: [id number] Oral 1040 625 Output: Void Amount 2150 1300 Other: Meal Dinner Nourishment/Supplement Percent of Meal Consumed 100% 100% Feeding Ability Independent Urine Appearance Clear Clear Urine Color Bright Yellow Bright Yellow Urine Odor Strong Normal Weight 221 lb Intake & Output: Intake & Output 08/15/18 08/16/18 08/16/18 21:59 05:59 13:59 Intake Total 1903 625 Output Total 2150 1300 Balance -247 -675 Weight 221 lb Intake: IV 863 Sodium Chloride 0.9% 1,000 ml @ 863 100 mls/hr IV .Q10H KAYODE Rx#: [id number] Oral 1040 625 Output: Void Amount 215 1300 Other: Meal Dinner Nourishment/Supplement Percent of Meal Consumed 100% 100% Feeding Ability Independent Urine Appearance Clear Clear Urine Color Bright Yellow Bright Yellow Urine Odor Strong Normal Incision clean and dry: Yes Dressing: Yes clean, Yes dry, Yes intact Weight bearing status: as tolerated Neurological exam IM: Yes alert, Yes oriented X3 Extremities exam IM: No calf tenderness, Yes normal inspection, Yes n eurovascular intact - Labs CBC & BMP: 08/08/18 14:24 08/08/18 14:24 Labs: 08/08/18 14:24 Hgb 12.7 Hct 38.2 Assessment and Plan (1) S/P total knee arthroplasty Status: Acute - Narrative A/P Narrative: Pt is a 72 yo female 1 day s/p left TKA. Overall doing well. She may be WBAT. Will plan for DC today.
--- NOTE | 2018-08-16 08:26 | Discharge Summary ---
Providers - Providers Patient information: Note initiated : 08/16/18 at 8:24 am Service Date, if different from initiated Date: [] Patient: Francine Way 72 y/o F admitted on 08/15/18 for Left Robotic [place] Knee Arthroplasty. POD 1. Overall doing well. Pain is managed. Chief Complaint: [s/p left TKA] Discharge date: 08/16/18 Hospitalization Hospital course: Pt was admitted 08/15/18 for left TKA. Hospital course has been unremarkable. She has been ambulating with PT and walking the halls with walker independently. Her pain is managed and she denies new complaints along with no nausea, no vomiting today. Discharge diagnosis: s/p left TKA Exam - Exam Incision healing: Yes Incision draining: No Incision swollen: Yes Clean and dry: Yes Weight bearing status: as tolerated Ortho Discharge - TKA - Patient Instructions Diet: Regular Diet Activity: activity as tolerated Total Knee Protocol: For Total Knee: Start ROM IRLANDA with stationary bike or rocking chair. Work on gaining full extension of knee. Posterior dislocation precautions provided. Hip abductor strengthening and gait training instructions provided. Apply Cryocuff as instructed. Dressing Care: May shower in 2 days, Aquacel Ag - leave on for 5 days Patient Education: Total Knee Replacement (DC) Additional Instructions: Discharge Instructions: Do the exercises at home that physical therapy gave you. Weight bearing as tolerated. Wear comfortable clothing for physical therapy. You are scheduled to start physical therapy at [facility] ([phone]) on August 20 at 3:00 pm, please arrive 15 minutes early for paperwork. Take your prescription, photo ID, insurance cards, and current medication list with you to your first physical therapy appointment. Take your prescription to lease picker any medication. You have the Aquacel Ag dressing, leave in place for 5 days then remove. If dressing becomes soiled (turns black), remove and use gauze 4x4 dressing and silvasorb ointment and change daily. You may shower with dressing on, pat dry after shower. You may start showering on post op day #2. To avoid constipation while taking any narcotic pain medication, take an over the counter stool softener/laxative. Use your Cryocuff or ice packs as directed, on for 20 minutes at a time throughout the day. This and elevation will help with pain and swelling. Call your physician for fevers above 100.5 or pain not controlled by medication. Your prescriptions are with your discharge information. Some medications were electronically transmitted to your pharmacy of choice. Take Aspirin as prescribed to prevent blood clots (see medication list). - Problem Maintenance (1) S/P total knee arthroplasty Status: Acute Qualifiers: Laterality: left Qualified Code(s): Z96.652 - Presence of left artificial knee joint - Follow Up Plan Follow Up Appointments: Jamal Sykes PA-C [Physician Electrical Service Technician] - 08/30/18 10:00 am Disposition: Home, Self-Care Prognosis: Good Rehab Potential: Good I certify that the patient requires SNF services: No Overall status at discharge: patient is progressing back to baseline - Orders For Discharge Prescriptions: oxyCODONE/APAP [Percocet 5-325 mg] 1 - 2 tab PO Q4-6HP PRN #60 tab PRN Reason: Pain Additional Discharge Orders: Physical Therapy at Discharge - TKA Location: None Selected Pending Studies Resuscitation Status Full Code Diet Consistent Carbohydrate Diet Start MonAug 15 924 Aspirin (Aspirin) 81 mg PO BID [facility] Last Admin: 08/16/18 08:00 Dose: 81 mg Documented by: [facility] Admin: 08/15/18 20:16 Dose: 81 mg Documented by: [facility] Calcium/Vitamin D (Calcium W/Vit D3) 500 mg PO TIDCC [facility] Last Admin: 08/16/18 08:00 Dose: 500 mg Documented by: [facility] Admin: 08/15/18 17:20 Dose: 500 mg [facility] Admin: 08/15/18 11:43 Dose: 500 mg [facility] Cyanocobalamin (Vitamin B-12) 500 mcg PO DAILY [facility] Last Admin: 08/16/18 08:00 Dose: 500 mcg [facility] Docusate Sodium (Colace) 100 mg PO BID [facility] Last Admin: 08/16/18 08:00 Dose: 100 mg [facility] Admin: 08/15/18 20:16 Dose: 100 mg Documented by: [facility]UM[facility] Sodium Chloride (Sodium Chloride 0.9%) 1,000 mls @ 100 mls/hr IV .Q10H [facility] Last Admin: 08/16/18 05:39 Dose: Not Given Documented by: Admin: 08/15/18 20:21 Dose: 100 mls/hr Documented by: Infusion: 08/15/18 20:21 Dose: 100 mls/hr [facility] Admin: 08/15/18 11:43 Dose: 100 mls/hr Documented by: [facility] Ketorolac Tromethamine (Toradol) 15 mg IV Q6 [facility] Stop: 08/17/18 06:01 Last Admin: 08/16/18 05:38 Dose: 15 mg Documented by: Admin: 08/15/18 23:35 Dose: 15 mg [facility] Admin: 08/15/18 17:21 Dose: 15 mg Documented by: [facility] Admin: 08/15/18 11:43 Dose: 15 mg Documented by: [facility] Oxycodone/Acetaminophen (Percocet 5-325 Mg) 0 tab PO Q4HP PRN PRN Reason: PAIN LEVEL 3-6 Last Admin: 08/16/18 04:17 Dose: 2 tab Documented by: Admin: 08/15/18 22:21 Dose: 2 tab Documented by: Admin: 08/15/18 17:19 Dose: 2 tab Documented by: [facility] Admin: 08/15/18 13:06 Dose: 1 tab Documented by: [facility] Cider Vinegar [Apple Cider Vinegar] 500 Mg Cap 1 dose PO DAILY [facility] Last Admin: 08/16/18 08:00 Dose: Not Given [facility]ed [facility] Mv,Iron,Min/Folic Acid/Biotin [Hair Formula] Tab 1 dose PO HS [facility] Last Admin: 08/15/18 20:41 Dose: 1 dose Documented by: [facility] Mv,Iron,Min/Folic Acid/Biotin [Hair Formula] Tab 2 dose PO QAM [facility] Last Admin: 08/16/18 08:00 Dose: 2 dose [facility]: [facility] Senna (Senokot) 2 tab PO HS [facility] Last Admin: 08/15/18 20:16 Dose: 2 tab Documented by: [facility] Sodium Chloride (Saline Flush) 10 ml IV Q8 [facility] Last Admin: 08/16/18 05:39 Dose: 10 ml [facility] Admin: 08/15/18 22:32 Dose: Not Given Documented by: Admin: 08/15/18 13:07 Dose: Not Given Documented by: [email or web address] Throat Lozenges (Cepacol) 1 lozenge PO PRN PRN PRN Reason: Sore Throat Last Admin: 08/15/18 10:08 Dose: 1 lozenge Documented by: [email or web address] Shift Summary 08/16/18 03:09 Shift Summary by Candace Cancino a/o x4, up with sba/fww, has had several walks, walk before sleep about 250 ft which she tolerated very well, voiding with no difficulty,last bm on 08/14/18, passing flatus, tolerating meals and fluid well, has had good pain control and as of this time only medicated x2 since her surgery, dressing to left knee reinforced r/t it was coming off, smith foam dressing applied to 2 suture sites on thigh area,will probably s/l her in the am, plans to go home today. Initialized on 08/16/18 03:09 - END OF NOTE
[2018-08-16] MEDS ORDERED: CIDER VINEGAR 500 MG PO SCH (09:00)
[2018-08-16] MEDS ORDERED: FOLIC ACID PO SCH (09:00)
[2018-08-16] MEDS ORDERED: MV IRON MIN PO SCH (09:00)
[2018-08-16] MEDS ORDERED: CYANOCOBALAMIN (VITAMIN B-12) 500 MCG TABLET PO SCH (09:00)
[2018-08-16] MEDS ORDERED: BIOTIN PO SCH (09:00)
== END 2018-08-16 13:50 | disposition home or self-care (01) | DRG 470 ==
LOC: MEDSUR 04:56
PROVIDERS: ADMIT Orthopaedic Surgery; ATTEND Orthopaedic Surgery